=== PATIENT | female | born 1960 | race African-American/Black ===

== ENCOUNTER → 2016-06-17 | Outpatient (CLI) | payer MEDICARE, MEDICAID ==
[~2016-06-17] MED LIST: ACLI400A2 IH; ALBU6.7H INH; ASPI325T2 PO; CARI250T PO; CLOP75TA33 PO; COR6 PO; DULO60CA44 PO; EZET10TA PO; FLUT1DIS3 IH; FURO-152 PO; GABAPENTIN PO; LISI-651 PO; LOSA25TA12 PO; METF10002 PO; METO10TA3 PO; MIRA25TA PO; MONT10TA21 PO; OMEP20CA10 PO; OXYC10TA48 PO; POTA20TA82 PO; PRO-AIR INHALER INH; SIMV40TA5 PO; TRAZ-132 PO; VYT1080; ZOLP5TAB8 PO
== END | disposition home or self-care (01) ==
LOC: RAD 10:09
PROVIDERS: ATTEND Specialist
DX: J98.4 Other disorders of lung (principal)
CPT/HCPCS: 71010

== ENCOUNTER 2016-06-30 22:13 | Inpatient (IN) | payer MEDICARE, MEDICAID ==
[~2016-06-30] VITALS: Ht 154.9 cm; Wt 76.2 kg
[2016-06-30] MEDS ORDERED: ONDANSETRON HCL 4MG/2ML VIAL IV STA (22:31)
[2016-06-30] MEDS ORDERED: ALBUTEROL (0.083%) 2.5MG/3ML NEB HHN STA (22:31)
[2016-06-30] MEDS ORDERED: METHYLPREDNISOLONE SOD SUCC 125 MG/2 ML VIAL IV STA (22:31)
[2016-06-30] MEDS ORDERED: MORPHINE SULFATE 4 MG/ML CPJ (NOT FOR IM USE) IV STA (22:31)
[2016-06-30] MEDS ORDERED: IPRATROPIUM BROMIDE (0.02%) 0.5MG/2.5ML NEB HHN STA (22:31)
[2016-06-30 22:58] LABS: BASOPHILS % 0.5 % (0.0-2.0); EOSINOPHILS % 1.4 % (0.0-5.0); HEMATOCRIT. 48.9 % (36.0-48.0); HEMOGLOBIN. 15.6 g/dL (12.0-16.0); LYMPHOCYTES % 31.6 % (20.0-50.0); MEAN CORPUSCULAR HEMOGLOBIN 27.4 pg (28.0-32.0); MEAN CORPUSCULAR HGB CONC 31.9 g/dL (31.0-37.0); MEAN CORPUSCULAR VOLUME 85.7 fL (81.0-99.0); MEAN PLATELET VOLUME 7.3 fl (7.4-10.4); MONOCYTES % 10.5 % (2.0-8.0); PLATELET 233 x1000/uL (130-400); RED BLOOD CELL COUNT 5.71 mill/uL (4.2-5.4); RED CELL DISTRIBUTION WIDTH 17.2 % (11.6-14.6); WHITE BLOOD COUNT 7.8 x1000/uL (4.5-11.0)
[2016-06-30 23:04] LABS: CHLORIDE 93 mEq/L (98-107); INDEX HEMOLYSI 4 (1-3); INDEX ICTERIC 1 (1-4); INDEX LIPEMIC 1 (1-3)
[2016-06-30 23:07] LABS: INR 1.2; PARTIAL THROMBOPLASTIN TIME 33.4 sec (24.0-34.0)
[2016-06-30 23:14] LABS: ALANINE AMINOTRANSFERASE 16 IU/L (13-61); ALBUMIN 3.1 g/dL (3.4-5.0); ANION GAP 12; CALCIUM 8.8 mg/dL (8.5-10.1); CARBON DIOXIDE 29 mEq/L (21-32); LIPASE 60 IU/L (73-393); UREA NITROGEN BLOOD 8 mg/dL (7-21); eGFR > 60 mL/min (>60)
[2016-06-30 23:51] LABS: CLARITY URINE CLEAR (CLEAR); COLOR URINE YELLOW (YELLOW); GLUCOSE URINE NEGATIVE (NEGATIVE); KETONES URINE NEGATIVE (NEGATIVE); LEUKOCYTE ESTERASE URINE TRACE (NEGATIVE); NITRITE URINE NEGATIVE (NEGATIVE); OCCULT BLOOD URINE NEGATIVE (NEGATIVE); PROTEIN URINE NEGATIVE (NEGATIVE); SPECIFIC GRAVITY URINE 1.009 (1.005-1.030)
[2016-06-30] MEDS ORDERED: MORP15TA67 PO (23:58)
[2016-06-30] MEDS ORDERED: EZET10TA PO (23:58)
[2016-07-01] VITALS (47 sets, daily range): BP systolic 118–198; BP diastolic 71–121
[2016-07-01 00:08] LABS: BACTERIA URINE TRACE; RBC URINE 0-2 /hpf (0-2); SQUAMOUS EPITHELIAL CELL URINE RARE /lpf (RARE/1+); WBC URINE 0-2 /hpf (0-2)
[2016-07-01] MEDS ORDERED: ONDANSETRON HCL 4MG/2ML VIAL IV ONE (01:45)
[2016-07-01] MEDS ORDERED: MORPHINE SULFATE 4 MG/ML CPJ (NOT FOR IM USE) IV ONE (01:45)
[2016-07-01] MEDS ORDERED: SODIUM CHLORIDE 0.9% 10ML VIAL ONE (06:00)
[2016-07-01] MEDS ORDERED: IOHEXOL-300 100 ML BOTTLE ONE (06:00)
[2016-07-01] MEDS ORDERED: ONDANSETRON HCL 4MG/2ML VIAL IV PRN ×2 (06:45→08:45)
[2016-07-01] MEDS ORDERED: BUPIVACAINE HCL 0.5% (5MG/ML) 50ML ONE (06:45)
[2016-07-01] MEDS ORDERED: MORPHINE SULFATE 2 MG/ML CPJ (NOT FOR IM USE) IV PRN ×3 (06:45→08:45)
[2016-07-01] MEDS ORDERED: ROCURONIUM BROMIDE 10MG/ML VIAL 5ML IV ONE (08:42)
[2016-07-01] MEDS ORDERED: PROPOFOL 200MG/20ML VIAL IV ONE (08:42)
[2016-07-01] MEDS ORDERED: CEFAZOLIN SODIUM 1000MG/VIAL ONE (08:42)
[2016-07-01] MEDS ORDERED: DEXAMETHASONE 4MG/ML 1ML VIAL ONE (08:42)
[2016-07-01] MEDS ORDERED: ACETAMINOPHEN 650MG SUPP PR PRN (08:45)
[2016-07-01] MEDS ORDERED: MORPHINE SULFATE 5 MG/ML VIAL IV PRN (08:45)
[2016-07-01] MEDS ORDERED: SKIN ADHESIVE 0.7 GM EA TOP ONE (09:04)
[2016-07-01] MEDS ORDERED: MIDAZOLAM HCL 5 MG/5 ML VIAL ONE (09:19)
[2016-07-01] MEDS ORDERED: HYDROMORPHONE HCL/PF 2MG/ML (OR) ONE (09:19)
[2016-07-01] MEDS ORDERED: HYDROMORPHONE HCL/PF 2MG/ML CPJ IV NR (10:00)
[2016-07-01] MEDS ORDERED: DEXT 5%/0.45% NACL KCL 20MEQ/L 1,000 ML IV SCH (10:00)
[2016-07-01] MEDS ORDERED: MIDAZOLAM HCL 2 MG/2 ML VIAL IV ONE (10:00)
[2016-07-01] MEDS ORDERED: ENALAPRIL 0.625 MG in DEXTROSE 5% WATER 49.5 ML IV PRN (10:45)
[2016-07-01] MEDS: MIDAZOLAM HCL 50 MG in DEXTROSE 5% WATER 40 ML IV PRN ×3 (11:06→22:03)
[2016-07-01] MEDS: FENTANYL CITRATE/PF 500 MCG in SODIUM CHLORIDE 0.9% 40 ML IV PRN ×2 (11:07→20:19)
[2016-07-01] MEDS ORDERED: SODIUM CHLORIDE 0.9% 1,000 ML IV SCH (11:15)
[2016-07-01 11:33] LABS: HEMATOCRIT 48.1 % (36.0-48.0); MEAN CORPUSCULAR HGB CONC 31.3 g/dL (31.0-37.0); MEAN CORPUSCULAR VOLUME 86.2 fL (81.0-99.0); PLATELET 203 x1000/uL (130-400); RED BLOOD CELL COUNT 5.58 mill/uL (4.2-5.4); WHITE BLOOD COUNT 7.4 x1000/uL (4.5-11.0)
[2016-07-01 11:47] LABS: ANION GAP 13; CALCIUM 8.6 mg/dL (8.5-10.1); CARBON DIOXIDE 30 mEq/L (21-32); CHLORIDE 98 mEq/L (98-107); INDEX HEMOLYSI 1 (1-3); INDEX ICTERIC 1 (1-4); INDEX LIPEMIC 1 (1-3); UREA NITROGEN BLOOD 7 mg/dL (7-21); eGFR > 60 mL/min (>60)
[2016-07-01] MEDS: FAMOTIDINE 20MG/2ML VIAL IV SCH ×2 (12:05→20:39)
[2016-07-01 12:31] LABS: BG CARBOXYHEMOGLOBIN 2.3 % (0.5-1.5); BG DEOXYHEMOGLOBIN 0.1 % (0.0-5.0); BG FRACTION INSPIRED OXYGEN 100; BG HCO3 ACT 28.2 mmol/L (22.0-26.0); BG METHEMOGLOBIN 0.1 % (0.0-1.5); BG OXYGEN SATURATION 99.9 % (92.0-98.5); BG OXYHEMOGLOBIN 97.5 % (94.0-97.0); BG PCO2 49.4 mmHg (35.0-45.0); BG PH 7.374 (7.350-7.450); BG PO2 401.1 mmHg (75.0-100.0); BG SAMPLE SITE RIGHT BRACHIAL; BG TIDAL VOLUME(mL) 500 mL; BG TOTAL HEMOGLOBIN 15.3 g/dL (12.0-18.0); BG VENT MODE VENT - A/C; BG VENT RATE 14 set
[2016-07-01] MEDS: DEXT 5%/0.45% NACL 1000ML 1,000 ML IV SCH (13:00)
[2016-07-01] MEDS ORDERED: SODIUM CHLORIDE 10% FOR INH 15ML VIAL NEB INH SCH (13:30)
[2016-07-01] MEDS: ENALAPRIL 1.25MG/ML VIAL 1ML IV PRN ×2 (17:39→20:39)
[2016-07-01] MEDS: BUDESONIDE 0.5MG/2ML NEB HHN SCH (19:57)
[2016-07-01] MEDS: IPRATROPIUM/ALBUTEROL 0.5-3(2.5)MG/3ML NEB HHN SCH (19:57)
[2016-07-02] VITALS (90 sets, daily range): BP systolic 119–180; BP diastolic 73–123
[2016-07-02] MEDS: IPRATROPIUM/ALBUTEROL 0.5-3(2.5)MG/3ML NEB HHN SCH ×4 (02:03→20:17)
[2016-07-02] MEDS: MIDAZOLAM HCL 50 MG in DEXTROSE 5% WATER 40 ML IV PRN ×3 (04:27→16:55)
[2016-07-02 05:25] LABS: BASOPHILS % 0.2 % (0.0-2.0); HEMATOCRIT. 46.4 % (36.0-48.0); HEMOGLOBIN. 14.6 g/dL (12.0-16.0); LYMPHOCYTES % 12.8 % (20.0-50.0); MEAN CORPUSCULAR HEMOGLOBIN 26.6 pg (28.0-32.0); MEAN CORPUSCULAR HGB CONC 31.4 g/dL (31.0-37.0); MEAN CORPUSCULAR VOLUME 84.6 fL (81.0-99.0); MEAN PLATELET VOLUME 7.9 fl (7.4-10.4); MONOCYTES % 10.5 % (2.0-8.0); NEUTROPHILS % 76.5 % (40.0-76.0); PLATELET 196 x1000/uL (130-400); RED BLOOD CELL COUNT 5.48 mill/uL (4.2-5.4); WHITE BLOOD COUNT 14.2 x1000/uL (4.5-11.0)
[2016-07-02 05:39] LABS: ANION GAP 13; CALCIUM 8.4 mg/dL (8.5-10.1); CARBON DIOXIDE 28 mEq/L (21-32); CHLORIDE 99 mEq/L (98-107); INDEX HEMOLYSI 3 (1-3); INDEX ICTERIC 1 (1-4); INDEX LIPEMIC 1 (1-3); MAGNESIUM 1.4 mg/dL (1.8-2.4); UREA NITROGEN BLOOD 7 mg/dL (7-21); eGFR > 60 mL/min (>60)
[2016-07-02] MEDS: DEXT 5%/0.45% NACL 1000ML 1,000 ML IV SCH ×2 (05:45→22:59)
[2016-07-02] MEDS: FENTANYL CITRATE/PF 500 MCG in SODIUM CHLORIDE 0.9% 40 ML IV PRN ×3 (05:46→21:15)
[2016-07-02] MEDS: FAMOTIDINE 20MG/2ML VIAL IV SCH ×2 (08:03→20:35)
[2016-07-02 08:31] LABS: BG BASE EXCESS 5.2 mmol/L (-2.0-2.0); BG CARBOXYHEMOGLOBIN 0.5 % (0.5-1.5); BG DEOXYHEMOGLOBIN 5.8 % (0.0-5.0); BG FRACTION INSPIRED OXYGEN 50; BG METHEMOGLOBIN 0.2 % (0.0-1.5); BG OXYGEN SATURATION 94.2 % (92.0-98.5); BG OXYHEMOGLOBIN 93.5 % (94.0-97.0); BG PCO2 55.4 mmHg (35.0-45.0); BG SAMPLE SITE RIGHT BRACHIAL; BG TIDAL VOLUME(mL) 500 mL; BG TOTAL HEMOGLOBIN 15.4 g/dL (12.0-18.0); BG VENT MODE VENT - A/C; BG VENT RATE 14 set
[2016-07-02] MEDS: BUDESONIDE 0.5MG/2ML NEB HHN SCH ×2 (08:36→20:17)
[2016-07-02] MEDS: ENALAPRIL 1.25MG/ML VIAL 1ML IV PRN (12:28)
[2016-07-02 15:28] LABS: CLARITY URINE CLEAR (CLEAR); COLOR URINE YELLOW (YELLOW); GLUCOSE URINE NEGATIVE (NEGATIVE); KETONES URINE NEGATIVE (NEGATIVE); LEUKOCYTE ESTERASE URINE NEGATIVE (NEGATIVE); NITRITE URINE NEGATIVE (NEGATIVE); OCCULT BLOOD URINE TRACE (NEGATIVE); PROTEIN URINE NEGATIVE (NEGATIVE); SPECIFIC GRAVITY URINE 1.009 (1.005-1.030)
[2016-07-02 15:31] LABS: BACTERIA URINE NONE SEEN; CALCIUM PHOSPHATE CRYSTALS UR NONE SEEN /lpf; SQUAMOUS EPITHELIAL CELL URINE NONE SEEN /lpf (RARE/1+); WAXY CASTS URINE NONE SEEN /lpf; WBC URINE 0-2 /hpf (0-2); YEAST URINE NONE SEEN
[2016-07-02] MEDS: PIPERACILLIN/TAZ 3.375G PREMIX 50 ML IV SCH ×2 (16:18→20:36)
[2016-07-02] MEDS: HYDRALAZINE 20MG/ML VIAL IV SCH (17:58)
[2016-07-02] MEDS ORDERED: VANCOMYCIN 1,250 MG in DEXT 5% WATER 250 ML IV NR (23:00)
[2016-07-03] VITALS (96 sets, daily range): BP systolic 96–174; BP diastolic 61–117
[2016-07-03] MEDS: MIDAZOLAM HCL 50 MG in DEXTROSE 5% WATER 40 ML IV PRN ×3 (00:07→13:42)
[2016-07-03] MEDS: IPRATROPIUM/ALBUTEROL 0.5-3(2.5)MG/3ML NEB HHN SCH ×4 (01:34→19:49)
[2016-07-03] MEDS: PIPERACILLIN/TAZ 3.375G PREMIX 50 ML IV SCH ×4 (02:00→20:18)
[2016-07-03] MEDS ORDERED: MAGNESIUM 2 G PREMIX 50 ML IV NR ×2 (03:00)
[2016-07-03] MEDS: HYDRALAZINE 20MG/ML VIAL IV SCH ×4 (06:00→17:24)
[2016-07-03] MEDS: FENTANYL CITRATE/PF 500 MCG in SODIUM CHLORIDE 0.9% 40 ML IV PRN ×2 (06:09→13:42)
[2016-07-03] MEDS: FAMOTIDINE 20MG/2ML VIAL IV SCH ×2 (08:09→20:18)
[2016-07-03] MEDS: BUDESONIDE 0.5MG/2ML NEB HHN SCH ×3 (08:17→19:49)
[2016-07-03 08:41] LABS: BASOPHILS % 0.4 % (0.0-2.0); HEMATOCRIT. 46.7 % (36.0-48.0); HEMOGLOBIN. 14.8 g/dL (12.0-16.0); LYMPHOCYTES % 9.7 % (20.0-50.0); MEAN CORPUSCULAR HEMOGLOBIN 26.8 pg (28.0-32.0); MEAN CORPUSCULAR HGB CONC 31.7 g/dL (31.0-37.0); MEAN CORPUSCULAR VOLUME 84.3 fL (81.0-99.0); MEAN PLATELET VOLUME 7.1 fl (7.4-10.4); MONOCYTES % 9.5 % (2.0-8.0); NEUTROPHILS % 80.4 % (40.0-76.0); PLATELET 188 x1000/uL (130-400); RED BLOOD CELL COUNT 5.53 mill/uL (4.2-5.4); RED CELL DISTRIBUTION WIDTH 17.4 % (11.6-14.6); WHITE BLOOD COUNT 16.7 x1000/uL (4.5-11.0)
[2016-07-03 09:00] LABS: CHLORIDE 95 mEq/L (98-107); INDEX HEMOLYSI 1 (1-3); INDEX ICTERIC 1 (1-4); INDEX LIPEMIC 1 (1-3)
[2016-07-03 09:09] LABS: ALANINE AMINOTRANSFERASE 9 IU/L (13-61); ALBUMIN 2.6 g/dL (3.4-5.0); ANION GAP 11; CALCIUM 8.3 mg/dL (8.5-10.1); CARBON DIOXIDE 31 mEq/L (21-32); MAGNESIUM 1.9 mg/dL (1.8-2.4); UREA NITROGEN BLOOD 5 mg/dL (7-21); eGFR > 60 mL/min (>60)
[2016-07-03] MEDS: VANCOMYCIN 1 G PREMIX 200 ML IV SCH ×2 (10:32→22:00)
[2016-07-03] MEDS ORDERED: POTASSIUM CHLORIDE 20MEQ TABLET SR PO NR (11:45)
[2016-07-03] MEDS ORDERED: POTASSIUM CHLORIDE 20MEQ/PACKET NG SCH (12:00)
[2016-07-03 12:40] LABS: BG CARBOXYHEMOGLOBIN 1.1 % (0.5-1.5); BG DEOXYHEMOGLOBIN 6.7 % (0.0-5.0); BG FRACTION INSPIRED OXYGEN 60; BG HCO3 ACT 30.7 mmol/L (22.0-26.0); BG METHEMOGLOBIN 0.2 % (0.0-1.5); BG OXYGEN SATURATION 93.2 % (92.0-98.5); BG PCO2 44.3 mmHg (35.0-45.0); BG PH 7.459 (7.350-7.450); BG PO2 66.6 mmHg (75.0-100.0); BG SAMPLE SITE RIGHT BRACHIAL; BG TIDAL VOLUME(mL) 500 mL; BG TOTAL HEMOGLOBIN 15.1 g/dL (12.0-18.0); BG VENT MODE VENT - A/C; BG VENT RATE 14 set
[2016-07-03] MEDS ORDERED: MIDAZOLAM HCL IV PRN (16:31)
[2016-07-03] MEDS ORDERED: WATER IV PRN (16:31)
[2016-07-03] MEDS ORDERED: FENTANYL CITRATE IV PRN (16:31)
[2016-07-03] MEDS ORDERED: SODIUM CHLORIDE 0.9% IV PRN (16:31)
[2016-07-03] MEDS ORDERED: DEXTROSE 5% IV PRN (16:31)
[2016-07-03] MEDS: DEXT 5%/0.45% NACL 1000ML 1,000 ML IV SCH (20:18)
[2016-07-03] MEDS: FENTANYL CITRATE/PF 1,000 MCG in SODIUM CHLORIDE 0.9% 80 ML IV PRN (20:36)
[2016-07-03] MEDS: MIDAZOLAM HCL 100 MG in DEXT 5% WATER 80 ML IV PRN (20:43)
[2016-07-03] MEDS ORDERED: DILTIAZEM HCL 5MG/ML 5ML VIAL IV NR (20:45)
[2016-07-03] MEDS ORDERED: FUROSEMIDE 40MG/4ML VIAL IVP NR (21:15)
[2016-07-04] VITALS (88 sets, daily range): BP systolic 85–125; BP diastolic 56–84
[2016-07-04] MEDS: IPRATROPIUM/ALBUTEROL 0.5-3(2.5)MG/3ML NEB HHN SCH ×4 (02:00→20:31)
[2016-07-04] MEDS ORDERED: ACETAMINOPHEN 650MG/20.3ML UDC PO PRN (02:38)
[2016-07-04] MEDS: PIPERACILLIN/TAZ 3.375G PREMIX 50 ML IV SCH ×4 (02:41→20:06)
[2016-07-04 05:17] LABS: BASOPHILS % 0.2 % (0.0-2.0); EOSINOPHILS % 0.1 % (0.0-5.0); HEMATOCRIT. 44.4 % (36.0-48.0); LYMPHOCYTES % 9.5 % (20.0-50.0); MEAN CORPUSCULAR HEMOGLOBIN 26.5 pg (28.0-32.0); MEAN CORPUSCULAR HGB CONC 31.5 g/dL (31.0-37.0); MEAN CORPUSCULAR VOLUME 84.3 fL (81.0-99.0); MEAN PLATELET VOLUME 7.8 fl (7.4-10.4); NEUTROPHILS % 81.2 % (40.0-76.0); PLATELET 171 x1000/uL (130-400); RED BLOOD CELL COUNT 5.27 mill/uL (4.2-5.4); RED CELL DISTRIBUTION WIDTH 16.7 % (11.6-14.6)
[2016-07-04 05:43] LABS: ANION GAP 11; CARBON DIOXIDE 31 mEq/L (21-32); CHLORIDE 97 mEq/L (98-107); CREATINE KINASE 75 IU/L (26-192); INDEX HEMOLYSI 1 (1-3); INDEX ICTERIC 1 (1-4); INDEX LIPEMIC 1 (1-3); LIPASE 67 IU/L (73-393); UREA NITROGEN BLOOD 8 mg/dL (7-21); eGFR > 60 mL/min (>60)
[2016-07-04] MEDS: HYDRALAZINE 20MG/ML VIAL IV SCH ×3 (05:55→12:00)
[2016-07-04 06:00] LABS: CALCIUM 8.6 mg/dL (8.5-10.1)
[2016-07-04 07:12] LABS: BG BASE EXCESS 1.5 mmol/L (-2.0-2.0); BG CARBOXYHEMOGLOBIN 0.5 % (0.5-1.5); BG DEOXYHEMOGLOBIN 5.1 % (0.0-5.0); BG FRACTION INSPIRED OXYGEN 80; BG HCO3 ACT 25.6 mmol/L (22.0-26.0); BG OXYGEN SATURATION 94.8 % (92.0-98.5); BG OXYHEMOGLOBIN 93.4 % (94.0-97.0); BG PCO2 38.9 mmHg (35.0-45.0); BG PH 7.436 (7.350-7.450); BG PO2 76.8 mmHg (75.0-100.0); BG SAMPLE SITE RIGHT BRACHIAL; BG TIDAL VOLUME(mL) 500 mL; BG TOTAL HEMOGLOBIN 14.8 g/dL (12.0-18.0); BG VENT MODE VENT - A/C; BG VENT RATE 14 set
[2016-07-04] MEDS ORDERED: KCL 10MEQ/50ML PREMIX 50 ML IV NR (07:15)
[2016-07-04] MEDS: FENTANYL CITRATE/PF 1,000 MCG in SODIUM CHLORIDE 0.9% 80 ML IV PRN ×2 (07:26→17:19)
[2016-07-04] MEDS: MIDAZOLAM HCL 100 MG in DEXT 5% WATER 80 ML IV PRN ×2 (07:27→19:09)
[2016-07-04] MEDS: FAMOTIDINE 20MG/2ML VIAL IV SCH ×2 (09:36→20:06)
[2016-07-04] MEDS ORDERED: MEROPENEM 1000MG in NORMAL SALINE 100ML IV SCH (13:00)
[2016-07-04] MEDS ORDERED: SODIUM CHLORIDE 0.9% 250 ML IV NR (15:15)
[2016-07-04] MEDS: DEXT 5%/0.45% NACL 1000ML 1,000 ML IV SCH (16:20)
[2016-07-04] MEDS: BUDESONIDE 0.5MG/2ML NEB HHN SCH (20:31)
[2016-07-04] MEDS ORDERED: BUDESONIDE 0.5MG/2ML NEB ONE (20:37)
[2016-07-05] VITALS (97 sets, daily range): BP systolic 82–166; BP diastolic 45–101
[2016-07-05] MEDS: PIPERACILLIN/TAZ 3.375G PREMIX 50 ML IV SCH ×4 (02:04→21:50)
[2016-07-05] MEDS: IPRATROPIUM/ALBUTEROL 0.5-3(2.5)MG/3ML NEB HHN SCH ×4 (02:07→19:59)
[2016-07-05] MEDS: FENTANYL CITRATE/PF 1,000 MCG in SODIUM CHLORIDE 0.9% 80 ML IV PRN ×3 (02:49→14:42)
[2016-07-05 05:24] LABS: BASOPHILS % 0.2 % (0.0-2.0); DIFFERENTIAL COMMENT 0; EOSINOPHILS % 1.6 % (0.0-5.0); HEMATOCRIT. 41.7 % (36.0-48.0); HEMOGLOBIN. 12.8 g/dL (12.0-16.0); LYMPHOCYTES % 11.7 % (20.0-50.0); MEAN CORPUSCULAR HEMOGLOBIN 26.2 pg (28.0-32.0); MEAN CORPUSCULAR HGB CONC 30.7 g/dL (31.0-37.0); MEAN CORPUSCULAR VOLUME 85.4 fL (81.0-99.0); MEAN PLATELET VOLUME 8.2 fl (7.4-10.4); MONOCYTES % 8.4 % (2.0-8.0); NEUTROPHILS % 78.1 % (40.0-76.0); PLATELET 165 x1000/uL (130-400); RED BLOOD CELL COUNT 4.88 mill/uL (4.2-5.4); RED CELL DISTRIBUTION WIDTH 16.9 % (11.6-14.6); WHITE BLOOD COUNT 14.2 x1000/uL (4.5-11.0)
[2016-07-05 05:35] LABS: CHLORIDE 102 mEq/L (98-107); INDEX HEMOLYSI 1 (1-3); INDEX ICTERIC 1 (1-4); INDEX LIPEMIC 1 (1-3)
[2016-07-05 05:43] LABS: ANION GAP 11; CARBON DIOXIDE 28 mEq/L (21-32); MAGNESIUM 1.8 mg/dL (1.8-2.4); UREA NITROGEN BLOOD 11 mg/dL (7-21); eGFR > 60 mL/min (>60)
[2016-07-05] MEDS: FAMOTIDINE 20MG/2ML VIAL IV SCH ×2 (08:28→21:50)
[2016-07-05] MEDS: DEXT 5%/0.45% NACL 1000ML 1,000 ML IV SCH (08:38)
[2016-07-05] MEDS ORDERED: MAGNESIUM 1 G PREMIX 100 ML IV SCH (10:00)
[2016-07-05] MEDS ORDERED: POTASSIUM CHLORIDE INJ 40 MEQ in DEXT 5% WATER 250 ML IV SCH (11:00)
[2016-07-05 11:28] LABS: BG BASE EXCESS 3.2 mmol/L (-2.0-2.0); BG CARBOXYHEMOGLOBIN 0.9 % (0.5-1.5); BG DEOXYHEMOGLOBIN 4.1 % (0.0-5.0); BG FRACTION INSPIRED OXYGEN 50; BG HCO3 ACT 28.8 mmol/L (22.0-26.0); BG METHEMOGLOBIN 0.2 % (0.0-1.5); BG OXYGEN SATURATION 95.9 % (92.0-98.5); BG OXYHEMOGLOBIN 94.8 % (94.0-97.0); BG PCO2 47.5 mmHg (35.0-45.0); BG PO2 83.4 mmHg (75.0-100.0); BG SAMPLE SITE RIGHT BRACHIAL; BG TIDAL VOLUME(mL) 500 mL; BG TOTAL HEMOGLOBIN 13.8 g/dL (12.0-18.0); BG VENT MODE VENT - A/C; BG VENT RATE 14 set
[2016-07-05] MEDS ORDERED: BISACODYL 5MG TABLET PO NR (12:30)
[2016-07-05] MEDS ORDERED: MAGNESIUM CITRATE 300ML SOLUTION PO NR (12:30)
[2016-07-05] MEDS ORDERED: LACTULOSE 20G/30ML UDC PO NR (12:30)
[2016-07-05] MEDS ORDERED: LACTULOSE 20G/30ML UDC NG NR (13:45)
[2016-07-05] MEDS ORDERED: MAGNESIUM CITRATE 300ML SOLUTION NG NR (13:45)
[2016-07-05] MEDS: MIDAZOLAM HCL 100 MG in DEXT 5% WATER 80 ML IV PRN (13:51)
[2016-07-05] MEDS ORDERED: LACTULOSE 20G/30ML UDC PO SCH (21:00)
[2016-07-05] MEDS: LACTULOSE 20G/30ML UDC NG SCH (21:50)
[2016-07-06] VITALS (62 sets, daily range): BP systolic 118–180; BP diastolic 66–101
[2016-07-06] MEDS: FENTANYL CITRATE/PF 1,000 MCG in SODIUM CHLORIDE 0.9% 80 ML IV PRN (00:54)
[2016-07-06] MEDS: IPRATROPIUM/ALBUTEROL 0.5-3(2.5)MG/3ML NEB HHN SCH ×4 (01:52→20:06)
[2016-07-06] MEDS: PIPERACILLIN/TAZ 3.375G PREMIX 50 ML IV SCH ×4 (02:53→20:38)
[2016-07-06 04:29] LABS: BASOPHILS % 0.3 % (0.0-2.0); EOSINOPHILS % 4.4 % (0.0-5.0); HEMATOCRIT. 42.4 % (36.0-48.0); HEMOGLOBIN. 13.3 g/dL (12.0-16.0); MEAN CORPUSCULAR HEMOGLOBIN 27.1 pg (28.0-32.0); MEAN CORPUSCULAR HGB CONC 31.4 g/dL (31.0-37.0); MEAN CORPUSCULAR VOLUME 86.2 fL (81.0-99.0); MONOCYTES % 11.5 % (2.0-8.0); NEUTROPHILS % 64.8 % (40.0-76.0); PLATELET 179 x1000/uL (130-400); RED BLOOD CELL COUNT 4.92 mill/uL (4.2-5.4); WHITE BLOOD COUNT 11.1 x1000/uL (4.5-11.0)
[2016-07-06] MEDS: MIDAZOLAM HCL 100 MG in DEXT 5% WATER 80 ML IV PRN (04:35)
[2016-07-06 05:06] LABS: ANION GAP 9; CALCIUM 8.9 mg/dL (8.5-10.1); CARBON DIOXIDE 31 mEq/L (21-32); CHLORIDE 107 mEq/L (98-107); INDEX HEMOLYSI 1 (1-3); INDEX ICTERIC 1 (1-4); INDEX LIPEMIC 1 (1-3); MAGNESIUM 2.1 mg/dL (1.8-2.4); UREA NITROGEN BLOOD 8 mg/dL (7-21); eGFR > 60 mL/min (>60)
[2016-07-06] MEDS: FAMOTIDINE 20MG/2ML VIAL IV SCH ×2 (09:07→20:38)
[2016-07-06 11:33] LABS: BG BASE EXCESS -3.5 mmol/L (-2.0-2.0); BG DEOXYHEMOGLOBIN 7.8 % (0.0-5.0); BG FRACTION INSPIRED OXYGEN 40; BG HCO3 ACT 23.2 mmol/L (22.0-26.0); BG METHEMOGLOBIN 0.2 % (0.0-1.5); BG OXYGEN SATURATION 92.1 % (92.0-98.5); BG PCO2 48.1 mmHg (35.0-45.0); BG PH 7.302 (7.350-7.450); BG PO2 71.2 mmHg (75.0-100.0); BG PRESSURE SUPPORT 8; BG SAMPLE SITE RIGHT RADIAL; BG TIDAL VOLUME(mL) 500 mL; BG TOTAL HEMOGLOBIN 14.6 g/dL (12.0-18.0); BG VENT MODE VENT - SIMV; BG VENT RATE 10 set
[2016-07-06] MEDS: MORPHINE SULFATE 2 MG/ML CPJ (NOT FOR IM USE) IV PRN ×2 (15:10→19:56)
[2016-07-06] MEDS: ACETYLCYSTEINE 100MG/ML 10% VIAL 4ML INH SCH (20:06)
[2016-07-06] MEDS: LACTULOSE 20G/30ML UDC NG SCH (20:38)
[2016-07-07] VITALS (48 sets, daily range): BP systolic 100–199; BP diastolic 49–153
[2016-07-07] MEDS: MORPHINE SULFATE 2 MG/ML CPJ (NOT FOR IM USE) IV PRN ×6 (00:12→22:06)
[2016-07-07] MEDS: ACETYLCYSTEINE 100MG/ML 10% VIAL 4ML INH SCH ×4 (01:57→20:47)
[2016-07-07] MEDS: IPRATROPIUM/ALBUTEROL 0.5-3(2.5)MG/3ML NEB HHN SCH ×4 (01:57→15:58)
[2016-07-07] MEDS: PIPERACILLIN/TAZ 3.375G PREMIX 50 ML IV SCH ×4 (03:22→21:13)
[2016-07-07 05:27] LABS: BASOPHILS % 0.7 % (0.0-2.0); EOSINOPHILS % 2.9 % (0.0-5.0); HEMATOCRIT. 40.8 % (36.0-48.0); HEMOGLOBIN. 12.7 g/dL (12.0-16.0); LYMPHOCYTES % 16.6 % (20.0-50.0); MEAN CORPUSCULAR HEMOGLOBIN 26.6 pg (28.0-32.0); MEAN CORPUSCULAR VOLUME 85.8 fL (81.0-99.0); MEAN PLATELET VOLUME 8.4 fl (7.4-10.4); MONOCYTES % 12.2 % (2.0-8.0); NEUTROPHILS % 67.6 % (40.0-76.0); PLATELET 220 x1000/uL (130-400); RED BLOOD CELL COUNT 4.76 mill/uL (4.2-5.4); RED CELL DISTRIBUTION WIDTH 17.3 % (11.6-14.6); WHITE BLOOD COUNT 8.4 x1000/uL (4.5-11.0)
[2016-07-07 05:38] LABS: ANION GAP 15; CARBON DIOXIDE 28 mEq/L (21-32); CHLORIDE 109 mEq/L (98-107); INDEX HEMOLYSI 1 (1-3); INDEX ICTERIC 1 (1-4); INDEX LIPEMIC 1 (1-3); UREA NITROGEN BLOOD 11 mg/dL (7-21); eGFR > 60 mL/min (>60)
[2016-07-07] MEDS: FAMOTIDINE 20MG/2ML VIAL IV SCH ×2 (08:13→21:13)
[2016-07-07] MEDS: HYDRALAZINE 20MG/ML VIAL IV PRN (10:04)
[2016-07-07 11:42] LABS: BG BASE EXCESS 4.1 mmol/L (-2.0-2.0); BG CARBOXYHEMOGLOBIN 0.9 % (0.5-1.5); BG DEOXYHEMOGLOBIN 8.1 % (0.0-5.0); BG FRACTION INSPIRED OXYGEN 40; BG HCO3 ACT 27.4 mmol/L (22.0-26.0); BG OXYGEN SATURATION 91.8 % (92.0-98.5); BG PH 7.488 (7.350-7.450); BG PRESSURE SUPPORT 8; BG SAMPLE SITE RIGHT RADIAL; BG TOTAL HEMOGLOBIN 13.7 g/dL (12.0-18.0); BG VENT MODE VENT - CPAP
[2016-07-07] MEDS ORDERED: PNEUMOCOCCAL 23-VAL P-SAC VAC 0.5 ML IM ONE (15:15)
[2016-07-07] MEDS: IPRATROPIUM/ALBUTEROL 0.5-3(2.5)MG/3ML NEB HHN PRN (20:48)
[2016-07-07] MEDS: LACTULOSE 20G/30ML UDC NG SCH (21:00)
[2016-07-08] VITALS (18 sets, daily range): BP systolic 118–153; BP diastolic 66–128
[2016-07-08] MEDS: MORPHINE SULFATE 2 MG/ML CPJ (NOT FOR IM USE) IV PRN ×4 (02:00→17:06)
[2016-07-08] MEDS: IPRATROPIUM/ALBUTEROL 0.5-3(2.5)MG/3ML NEB HHN SCH ×4 (02:34→21:24)
[2016-07-08] MEDS: PIPERACILLIN/TAZ 3.375G PREMIX 50 ML IV SCH ×4 (03:08→20:45)
[2016-07-08 05:42] LABS: BASOPHILS % 0.5 % (0.0-2.0); EOSINOPHILS % 3.1 % (0.0-5.0); HEMATOCRIT. 40.2 % (36.0-48.0); HEMOGLOBIN. 12.5 g/dL (12.0-16.0); LYMPHOCYTES % 19.5 % (20.0-50.0); MEAN CORPUSCULAR HEMOGLOBIN 26.4 pg (28.0-32.0); MEAN CORPUSCULAR HGB CONC 31.1 g/dL (31.0-37.0); MEAN CORPUSCULAR VOLUME 84.8 fL (81.0-99.0); MEAN PLATELET VOLUME 8.8 fl (7.4-10.4); MONOCYTES % 11.5 % (2.0-8.0); NEUTROPHILS % 65.4 % (40.0-76.0); PLATELET 252 x1000/uL (130-400); RED BLOOD CELL COUNT 4.74 mill/uL (4.2-5.4); RED CELL DISTRIBUTION WIDTH 17.3 % (11.6-14.6)
[2016-07-08 06:05] LABS: ANION GAP 12; CALCIUM 8.8 mg/dL (8.5-10.1); CARBON DIOXIDE 30 mEq/L (21-32); CHLORIDE 106 mEq/L (98-107); INDEX HEMOLYSI 2 (1-3); INDEX ICTERIC 1 (1-4); INDEX LIPEMIC 1 (1-3); UREA NITROGEN BLOOD 10 mg/dL (7-21); eGFR > 60 mL/min (>60)
[2016-07-08] MEDS: FAMOTIDINE 20MG/2ML VIAL IV SCH ×2 (08:20→20:44)
[2016-07-08] MEDS: LACTULOSE 20G/30ML UDC NG SCH (21:00)
[2016-07-09] VITALS (11 sets, daily range): BP systolic 119–160; BP diastolic 67–108
[2016-07-09] MEDS: IPRATROPIUM/ALBUTEROL 0.5-3(2.5)MG/3ML NEB HHN SCH ×3 (00:31→21:32)
[2016-07-09] MEDS: MORPHINE SULFATE 2 MG/ML CPJ (NOT FOR IM USE) IV PRN ×4 (01:04→18:30)
[2016-07-09] MEDS: PIPERACILLIN/TAZ 3.375G PREMIX 50 ML IV SCH ×4 (02:37→20:11)
[2016-07-09] MEDS: HYDRALAZINE 20MG/ML VIAL IV PRN ×2 (04:51→15:24)
[2016-07-09 06:21] LABS: BASOPHILS % 0.7 % (0.0-2.0); DIFFERENTIAL COMMENT 0; EOSINOPHILS % 3.4 % (0.0-5.0); HEMATOCRIT. 43.2 % (36.0-48.0); HEMOGLOBIN. 13.3 g/dL (12.0-16.0); LYMPHOCYTES % 31.8 % (20.0-50.0); MEAN CORPUSCULAR HEMOGLOBIN 26.1 pg (28.0-32.0); MEAN CORPUSCULAR HGB CONC 30.8 g/dL (31.0-37.0); MEAN CORPUSCULAR VOLUME 84.8 fL (81.0-99.0); MEAN PLATELET VOLUME 8.8 fl (7.4-10.4); MONOCYTES % 11.3 % (2.0-8.0); NEUTROPHILS % 52.8 % (40.0-76.0); PLATELET 277 x1000/uL (130-400); RED CELL DISTRIBUTION WIDTH 17.3 % (11.6-14.6); WHITE BLOOD COUNT 11.1 x1000/uL (4.5-11.0)
[2016-07-09 07:00] LABS: CALCIUM 8.6 mg/dL (8.5-10.1); CARBON DIOXIDE 29 mEq/L (21-32); CHLORIDE 100 mEq/L (98-107); INDEX HEMOLYSI 1 (1-3); INDEX ICTERIC 1 (1-4); INDEX LIPEMIC 1 (1-3); UREA NITROGEN BLOOD 6 mg/dL (7-21); eGFR > 60 mL/min (>60)
[2016-07-09 07:05] LABS: ANION GAP 12
[2016-07-09] MEDS: FAMOTIDINE 20MG/2ML VIAL IV SCH ×2 (08:11→20:11)
[2016-07-09] MEDS ORDERED: POTASSIUM CHLORIDE 20MEQ TABLET SR PO NR ×2 (09:01→18:00)
[2016-07-09] MEDS ORDERED: POTASSIUM CHLORIDE INJ 40 MEQ in DEXT 5% WATER 250 ML IV NR (10:00)
[2016-07-09] MEDS: LACTULOSE 20G/30ML UDC NG SCH (20:12)
[2016-07-10] VITALS (12 sets, daily range): BP systolic 119–147; BP diastolic 69–90
[2016-07-10] MEDS: IPRATROPIUM/ALBUTEROL 0.5-3(2.5)MG/3ML NEB HHN SCH ×3 (01:52→20:36)
[2016-07-10] MEDS: PIPERACILLIN/TAZ 3.375G PREMIX 50 ML IV SCH ×4 (02:03→20:43)
[2016-07-10] MEDS: MORPHINE SULFATE 2 MG/ML CPJ (NOT FOR IM USE) IV PRN ×4 (03:54→20:28)
[2016-07-10 06:33] LABS: ANION GAP 12; CALCIUM 8.4 mg/dL (8.5-10.1); CARBON DIOXIDE 27 mEq/L (21-32); CHLORIDE 103 mEq/L (98-107); INDEX HEMOLYSI 1 (1-3); INDEX ICTERIC 1 (1-4); INDEX LIPEMIC 1 (1-3); UREA NITROGEN BLOOD 5 mg/dL (7-21); eGFR > 60 mL/min (>60)
[2016-07-10 06:42] LABS: HEMATOCRIT 42.8 % (36.0-48.0); HEMOGLOBIN 13.3 g/dL (12.0-16.0); MEAN CORPUSCULAR HEMOGLOBIN 26.6 pg (28.0-32.0); MEAN CORPUSCULAR HGB CONC 31.1 g/dL (31.0-37.0); MEAN CORPUSCULAR VOLUME 85.3 fL (81.0-99.0); PLATELET 290 x1000/uL (130-400); RED BLOOD CELL COUNT 5.02 mill/uL (4.2-5.4); RED CELL DISTRIBUTION WIDTH 17.1 % (11.6-14.6); WHITE BLOOD COUNT 9.5 x1000/uL (4.5-11.0)
[2016-07-10] MEDS: FAMOTIDINE 20MG/2ML VIAL IV SCH ×2 (09:38→20:28)
[2016-07-10] MEDS: IPRATROPIUM/ALBUTEROL 0.5-3(2.5)MG/3ML NEB HHN PRN (16:32)
[2016-07-10] MEDS: LACTULOSE 20G/30ML UDC NG SCH (20:28)
[2016-07-11] VITALS (7 sets, daily range): BP systolic 120–146; BP diastolic 71–92
[2016-07-11] MEDS: MORPHINE SULFATE 2 MG/ML CPJ (NOT FOR IM USE) IV PRN ×3 (00:13→08:35)
[2016-07-11] MEDS: IPRATROPIUM/ALBUTEROL 0.5-3(2.5)MG/3ML NEB HHN SCH ×2 (01:41→09:13)
[2016-07-11] MEDS: PIPERACILLIN/TAZ 3.375G PREMIX 50 ML IV SCH ×2 (02:39→08:34)
[2016-07-11 07:01] LABS: BASOPHILS % 0.4 % (0.0-2.0); EOSINOPHILS % 3.6 % (0.0-5.0); HEMATOCRIT. 39.2 % (36.0-48.0); HEMOGLOBIN. 12.2 g/dL (12.0-16.0); LYMPHOCYTES % 22.8 % (20.0-50.0); MEAN CORPUSCULAR HEMOGLOBIN 26.4 pg (28.0-32.0); MEAN CORPUSCULAR HGB CONC 31.2 g/dL (31.0-37.0); MEAN CORPUSCULAR VOLUME 84.8 fL (81.0-99.0); MEAN PLATELET VOLUME 8.7 fl (7.4-10.4); MONOCYTES % 9.7 % (2.0-8.0); NEUTROPHILS % 63.5 % (40.0-76.0); PLATELET 285 x1000/uL (130-400); RED BLOOD CELL COUNT 4.62 mill/uL (4.2-5.4); RED CELL DISTRIBUTION WIDTH 17.1 % (11.6-14.6); WHITE BLOOD COUNT 8.9 x1000/uL (4.5-11.0)
[2016-07-11 07:48] LABS: ANION GAP 10; CALCIUM 8.5 mg/dL (8.5-10.1); CARBON DIOXIDE 28 mEq/L (21-32); CHLORIDE 104 mEq/L (98-107); INDEX HEMOLYSI 1 (1-3); INDEX ICTERIC 1 (1-4); INDEX LIPEMIC 1 (1-3); eGFR > 60 mL/min (>60)
[2016-07-11 08:14] LABS: UREA NITROGEN BLOOD 3 mg/dL (7-21)
[2016-07-11] MEDS: FAMOTIDINE 20MG/2ML VIAL IV SCH (08:35)
[2016-07-11] MEDS ORDERED: POTASSIUM CHLORIDE 20MEQ TABLET SR PO SCH (09:30)
== END 2016-07-11 11:30 | disposition home or self-care (01) | DRG 853 ==
LOC: ER 22:14 → 8WST 07-01 02:00 → MICUSO 07-01 09:58 → 5EST 07-08 12:50
PROVIDERS: ADMIT Specialist; ATTEND Specialist
PROC: 5A1955Z Respiratory Ventilation, Greater than 96 Consecutive Hours (ICD-10-PCS; 2016-07-01)
PROC: 0BH17EZ Insertion of Endotracheal Airway into Trachea, Via Natural or Artificial Opening (ICD-10-PCS; 2016-07-01)
PROC: 0WUF0JZ Supplement Abdominal Wall with Synthetic Substitute, Open Approach (ICD-10-PCS; principal; 2016-07-01 06:32)
PROC: 0DN80ZZ Release Small Intestine, Open Approach (ICD-10-PCS; 2016-07-01 06:32)
DX: A41.52 Sepsis due to Pseudomonas (principal); J96.00 Acute respiratory failure, unspecified whether with hypoxia or hypercapnia; J15.5 Pneumonia due to Escherichia coli; K42.0 Umbilical hernia with obstruction, without gangrene; J44.1 Chronic obstructive pulmonary disease with (acute) exacerbation; E44.1 Mild protein-calorie malnutrition; E87.1 Hypo-osmolality and hyponatremia; E87.2 Acidosis; I42.9 Cardiomyopathy, unspecified; J44.0 Chronic obstructive pulmonary disease with (acute) lower respiratory infection; J98.11 Atelectasis; M87.9 Osteonecrosis, unspecified; E11.9 Type 2 diabetes mellitus without complications; I11.0 Hypertensive heart disease with heart failure; D69.6 Thrombocytopenia, unspecified; E78.00 Pure hypercholesterolemia, unspecified; E78.5 Hyperlipidemia, unspecified; E83.42 Hypomagnesemia; E87.6 Hypokalemia; F17.200 Nicotine dependence, unspecified, uncomplicated; G89.4 Chronic pain syndrome; I25.10 Atherosclerotic heart disease of native coronary artery without angina pectoris; I25.2 Old myocardial infarction; I50.9 Heart failure, unspecified; Z96.649 Presence of unspecified artificial hip joint; R41.3 Other amnesia; R26.9 Unspecified abnormalities of gait and mobility; R56.9 Unspecified convulsions; Z82.49 Family history of ischemic heart disease and other diseases of the circulatory system; Z86.73 Personal history of transient ischemic attack (TIA), and cerebral infarction without residual deficits; Z90.49 Acquired absence of other specified parts of digestive tract; Z95.1 Presence of aortocoronary bypass graft; Z95.5 Presence of coronary angioplasty implant and graft; Z99.81 Dependence on supplemental oxygen; Z91.012 Allergy to eggs; Z79.899 Other long term (current) drug therapy; Z68.31 Body mass index [BMI] 31.0-31.9, adult
CPT/HCPCS: 36415; 36600; 71010; 74000; 74177; 80048; 80053; 80202; 81001; 82375; 82533; 82550; 82805; 83690; 83735; 84100; 85025; 85027; 85610; 85730; 86850; 86900; 87040; 87070; 87077; 87086; 87186; 92523; 92610; 93005; 93306; 93970; 94002; 94003; 94640; 94664; 96374; 96375; 96376; 97116; 97163; 97167; 97535; 99285; 99406; A4216; A6261; C1781; J0360; J0690; J1100; J1170; J1940; J2185; J2250; J2270; J2405; J2543; J2704; J2930; J3010; J3370; J3475; J3480; J3490; J7030; J7040; J7050; J7060; J7131; J7608; J7611; J7620; J7626; Q9967

== ENCOUNTER 2016-08-26 08:44 | Inpatient (IN) | payer MEDICARE, MEDICAID ==
[~2016-08-26] VITALS: Ht 154.9 cm; Wt 70.3 kg
[~2016-08-26 08:44] MED LIST changes: +ASPI-986 PO; -ASPI325T2 PO; -EZET10TA PO; +MORP15TA67 PO; +ZET10 PO
[2016-08-26] MEDS ORDERED: IPRATROPIUM BROMIDE (0.02%) 0.5MG/2.5ML NEB HHN STA ×2 (10:06→12:16)
[2016-08-26] MEDS ORDERED: ALBUTEROL (0.083%) 2.5MG/3ML NEB HHN STA ×2 (10:06→12:16)
[2016-08-26 10:34] LABS: BASOPHILS % 0.8 % (0.0-2.0); EOSINOPHILS % 0.7 % (0.0-5.0); HEMATOCRIT. 52.4 % (36.0-48.0); HEMOGLOBIN. 16.9 g/dL (12.0-16.0); LYMPHOCYTES % 45.7 % (20.0-50.0); MEAN CORPUSCULAR HEMOGLOBIN 27.6 pg (28.0-32.0); MEAN CORPUSCULAR VOLUME 85.7 fL (81.0-99.0); MEAN PLATELET VOLUME 7.4 fl (7.4-10.4); NEUTROPHILS % 46.8 % (40.0-76.0); PLATELET 256 x1000/uL (130-400); RED BLOOD CELL COUNT 6.12 mill/uL (4.2-5.4); RED CELL DISTRIBUTION WIDTH 19.8 % (11.6-14.6)
[2016-08-26 10:41] LABS: INR 1.1; PROTHROMBIN TIME 11.3 sec
[2016-08-26 10:52] LABS: CARBON DIOXIDE 32 mEq/L (21-32); CHLORIDE 101 mEq/L (98-107); TROPONIN I < 0.02 ng/mL (0.00-0.04)
[2016-08-26] MEDS ORDERED: MORPHINE SULFATE 4 MG/ML CPJ (NOT FOR IM USE) IV ONE (11:00)
[2016-08-26] MEDS ORDERED: ONDANSETRON HCL 4MG/2ML VIAL IV ONE (11:00)
[2016-08-26] MEDS ORDERED: SODIUM CHLORIDE 0.9% 500 ML IV ONE (11:45)
[2016-08-26] MEDS ORDERED: METHYLPREDNISOLONE SOD SUCC 125 MG/2 ML VIAL IV ONE (12:30)
[2016-08-26] MEDS ORDERED: MORPHINE SULFATE 2 MG/ML CPJ (NOT FOR IM USE) IV ONE (12:30)
[2016-08-26] MEDS ORDERED: SODIUM CHLORIDE 0.9% 1,000 ML IV ONE (15:00)
[2016-08-26] MEDS ORDERED: IPRATROPIUM/ALBUTEROL 0.5-3(2.5)MG/3ML NEB INH PRN (16:30)
[2016-08-26] MEDS ORDERED: GUAIFENESIN 200MG/10ML SUGAR FREE UDC PO PRN (16:30)
[2016-08-26] MEDS ORDERED: NA PHOS,M-B/NA PHOS,DI-BA ENEMA 118ML PR PRN (16:30)
[2016-08-26] MEDS ORDERED: MAGNESIUM/ALUMINUM HYDROXIDE/SIMETHICONE 30ML UDC PO PRN (16:30)
[2016-08-26] MEDS ORDERED: ACETAMINOPHEN 325MG TABLET PO PRN (16:30)
[2016-08-26] MEDS ORDERED: DOCUSATE SODIUM 100MG CAPSULE PO PRN (16:30)
[2016-08-26] MEDS ORDERED: ONDANSETRON HCL 4MG/2ML VIAL IV PRN (16:30)
[2016-08-26] MEDS ORDERED: HYDROCODONE/ACETAMINOPHEN 5/325MG TABLET PO PRN (16:30)
[2016-08-26] MEDS ORDERED: CLONIDINE 0.1MG TABLET PO PRN (16:30)
[2016-08-26 16:41] LABS: CLARITY URINE CLEAR (CLEAR); COLOR URINE YELLOW (YELLOW); KETONES URINE NEGATIVE (NEGATIVE); LEUKOCYTE ESTERASE URINE NEGATIVE (NEGATIVE); NITRITE URINE NEGATIVE (NEGATIVE); OCCULT BLOOD URINE NEGATIVE (NEGATIVE); PROTEIN URINE NEGATIVE (NEGATIVE); SPECIFIC GRAVITY URINE 1.014 (1.005-1.030); UROBILINOGEN URINE 0.2 E.U./dL (0.2-1.0)
[2016-08-26] MEDS ORDERED: ENOXAPARIN 40MG/0.4ML SYR SUBCUT SCH (17:00)
[2016-08-26 17:28] LABS: *AMPHETAMINES SCREEN URINE NEGATIVE (NEGATIVE); *BARBITURATES SCREEN URINE NEGATIVE (NEGATIVE); *BENZODIAZEPINES SCREEN URINE NEGATIVE (NEGATIVE); *COCAINE SCREEN URINE NEGATIVE (NEGATIVE); CANNABINOID URINE SCREEN NEGATIVE (NEGATIVE); METHADONE URINE SCREEN NEGATIVE (NEGATIVE); OPIATES URINE SCREEN PRESUMTIVE POSITIVE (NEGATIVE); PHENCYCLIDINE URINE SCREEN NEGATIVE (NEGATIVE)
[2016-08-26] MEDS ORDERED: BUDESONIDE 0.5MG/2ML NEB HHN SCH (18:00)
[2016-08-26] MEDS ORDERED: DEXTROSE 50% WATER 50ML SYRINGE IV PRN (19:15)
[2016-08-26] MEDS ORDERED: HYDROCODONE/ACETAMINOPHEN 10/325MG TABLET PO PRN (19:30)
[2016-08-26] MEDS ORDERED: BLOOD SUGAR DIAGNOSTIC STRIP TEST SCH (21:00)
[2016-08-26] MEDS ORDERED: INSULIN LISPRO 100 UNITS/ML SUBCUT SCH (21:00)
[2016-08-26] MEDS ORDERED: ZOLPIDEM TARTRATE 5MG TABLET PO PRN (21:00)
[2016-08-26] MEDS: IPRATROPIUM/ALBUTEROL 0.5-3(2.5)MG/3ML NEB HHN SCH (21:33)
[2016-08-26] MEDS ORDERED: OXYCODONE HCL 5MG TABLET PO PRN (22:00)
[2016-08-26] MEDS ORDERED: MORPHINE SULFATE 30MG TABLET SR PO SCH (22:00)
[2016-08-27 03:42] VITALS: BP 126/80
[2016-08-27] MEDS: IPRATROPIUM/ALBUTEROL 0.5-3(2.5)MG/3ML NEB HHN SCH (03:42)
[2016-08-27] MEDS ORDERED: OMEPRAZOLE 20MG CAPSULE EXTENDED RELEASE PO SCH (07:30)
== END 2016-08-27 05:41 | disposition left against medical advice (07) | DRG 291 ==
LOC: ER 08:59 → 5EST 15:05 → ORIP 16:16 → 3WST 16:21
PROVIDERS: ADMIT Family Medicine Adult Medicine; ATTEND Family Medicine Adult Medicine
DX: I11.0 Hypertensive heart disease with heart failure (principal); J96.01 Acute respiratory failure with hypoxia; J45.901 Unspecified asthma with (acute) exacerbation; E87.2 Acidosis; I50.23 Acute on chronic systolic (congestive) heart failure; I42.9 Cardiomyopathy, unspecified; J44.9 Chronic obstructive pulmonary disease, unspecified; G89.29 Other chronic pain; I25.10 Atherosclerotic heart disease of native coronary artery without angina pectoris; Z53.21 Procedure and treatment not carried out due to patient leaving prior to being seen by health care provider; Z99.81 Dependence on supplemental oxygen; Z95.1 Presence of aortocoronary bypass graft; Z91.012 Allergy to eggs; Z79.82 Long term (current) use of aspirin; Z79.899 Other long term (current) drug therapy; Z90.49 Acquired absence of other specified parts of digestive tract; Z87.891 Personal history of nicotine dependence; Z72.89 Other problems related to lifestyle; Z80.9 Family history of malignant neoplasm, unspecified
CPT/HCPCS: 36415; 71010; 78582; 80053; 80305; 81003; 82962; 83605; 83880; 84484; 85025; 85610; 87040; 93005; 93970; 94640; 96361; 96374; 96375; 96376; 99285; A9558; C1893; J1650; J1815; J2270; J2405; J2930; J7030; J7040; J7611

== ENCOUNTER 2016-09-16 19:52 | Inpatient (IN) | payer MEDICARE, MEDICAID ==
[~2016-09-16] VITALS: Ht 154.9 cm; Wt 62.6 kg
[~2016-09-16 19:52] MED LIST changes: +EZET10TA PO; -ZET10 PO
[2016-09-16] MEDS ORDERED: ALBUTEROL (0.083%) 2.5MG/3ML NEB HHN STA (20:29)
[2016-09-16 20:49] LABS: BASOPHILS % 0.7 % (0.0-2.0); EOSINOPHILS % 1.4 % (0.0-5.0); HEMOGLOBIN. 13.7 g/dL (12.0-16.0); LYMPHOCYTES % 35.6 % (20.0-50.0); MEAN CORPUSCULAR HEMOGLOBIN 27.5 pg (28.0-32.0); MEAN CORPUSCULAR VOLUME 86.4 fL (81.0-99.0); MEAN PLATELET VOLUME 7.3 fl (7.4-10.4); MONOCYTES % 12.1 % (2.0-8.0); NEUTROPHILS % 50.2 % (40.0-76.0); PLATELET 231 x1000/uL (130-400); RED BLOOD CELL COUNT 4.97 mill/uL (4.2-5.4); RED CELL DISTRIBUTION WIDTH 20.9 % (11.6-14.6)
[2016-09-16 20:51] LABS: CHLORIDE 99 mEq/L (98-107)
[2016-09-16 20:52] LABS: INR 1.1; PROTHROMBIN TIME 11.2 sec
[2016-09-16 20:55] LABS: CARBON DIOXIDE 32 mEq/L (21-32)
[2016-09-16 21:02] LABS: ETHANOL BLOOD 126 mg/dL; TROPONIN I 0.14 ng/mL (0.00-0.04)
[2016-09-16] MEDS ORDERED: ASPIRIN 81MG TABLET PO ONE (21:15)
[2016-09-16 22:43] LABS: *AMPHETAMINES SCREEN URINE NEGATIVE (NEGATIVE); *BARBITURATES SCREEN URINE NEGATIVE (NEGATIVE); *BENZODIAZEPINES SCREEN URINE NEGATIVE (NEGATIVE); *COCAINE SCREEN URINE NEGATIVE (NEGATIVE); CANNABINOID URINE SCREEN NEGATIVE (NEGATIVE); METHADONE URINE SCREEN NEGATIVE (NEGATIVE); OPIATES URINE SCREEN PRESUMTIVE POSITIVE (NEGATIVE); PHENCYCLIDINE URINE SCREEN NEGATIVE (NEGATIVE)
[2016-09-16] MEDS ORDERED: HYDROCODONE/ACETAMINOPHEN 5/325MG TABLET PO ONE (22:45)
[2016-09-16 23:42] VITALS: BP 135/78
[2016-09-17] MEDS ORDERED: GABA-531 PO (00:38)
[2016-09-17] MEDS ORDERED: IPRATROPIUM/ALBUTEROL 0.5-3(2.5)MG/3ML NEB HHN PRN (01:30)
[2016-09-17] MEDS ORDERED: ZOLPIDEM TARTRATE 5MG TABLET PO PRN (01:45)
[2016-09-17 04:00] VITALS: BP_SYST 146; BP_DIAS 1; BP_DIAS 91
[2016-09-17] MEDS: IPRATROPIUM/ALBUTEROL 0.5-3(2.5)MG/3ML NEB HHN SCH ×5 (04:13→20:30)
[2016-09-17] MEDS: HYDROCODONE/ACETAMINOPHEN 5/325MG TABLET PO PRN ×3 (05:18→17:30)
[2016-09-17] MEDS ORDERED: ALBUTEROL (0.083%) 2.5MG/3ML NEB HHN SCH (06:00)
[2016-09-17 07:46] VITALS: BP 117/82
[2016-09-17] MEDS ORDERED: LOSARTAN POTASSIUM 25 MG TABLET PO SCH (09:00)
[2016-09-17] MEDS ORDERED: FUROSEMIDE 40MG/4ML VIAL IVP SCH (09:00)
[2016-09-17] MEDS ORDERED: MEDICATION NOT ON FORMULARY EA (Fluticasone/Salmeterol (Advair 250-50 Diskus) 1 PUFF) IH SCH (09:00)
[2016-09-17] MEDS: EZETIMIBE 10MG TABLET PO SCH (09:12)
[2016-09-17] MEDS: LISINOPRIL 10MG TABLET PO SCH (09:12)
[2016-09-17] MEDS: OMEPRAZOLE 20MG CAPSULE EXTENDED RELEASE PO SCH (09:13)
[2016-09-17] MEDS: CARVEDILOL 12.5MG TABLET PO SCH ×2 (09:13→21:05)
[2016-09-17] MEDS: DULOXETINE HCL 60MG DR CAPSULE PO SCH ×2 (09:13→17:26)
[2016-09-17] MEDS: MORPHINE SULFATE 15MG TABLET SR PO SCH ×2 (09:13→21:06)
[2016-09-17] MEDS: GABAPENTIN 300MG CAPSULE PO SCH ×3 (09:13→17:26)
[2016-09-17] MEDS: ENOXAPARIN 40MG/0.4ML SYR SUBCUT SCH (09:14)
[2016-09-17] MEDS: CLOPIDOGREL 75MG TABLET PO SCH (09:14)
[2016-09-17] MEDS: ASPIRIN 325MG TABLET PO SCH (09:17)
[2016-09-17 11:38] VITALS: BP 139/84
[2016-09-17 15:54] VITALS: BP 140/79
[2016-09-17] MEDS: FUROSEMIDE 40MG/4ML VIAL IVP SCH (17:22)
[2016-09-17 20:00] VITALS: BP 112/82
[2016-09-17] MEDS: BUDESONIDE 0.5MG/2ML NEB HHN SCH (20:31)
[2016-09-17] MEDS: TRAZODONE HCL 100MG TABLET PO SCH (21:05)
[2016-09-17] MEDS: ATORVASTATIN CALCIUM 20MG TABLET PO SCH (21:05)
[2016-09-17] MEDS: MONTELUKAST SODIUM 10MG TABLET PO SCH (21:05)
[2016-09-17] MEDS: CARISOPRODOL 350 MG TABLET PO PRN (21:12)
[2016-09-18] VITALS: BP 123/71
[2016-09-18] MEDS: IPRATROPIUM/ALBUTEROL 0.5-3(2.5)MG/3ML NEB HHN SCH ×6 (00:21→20:20)
[2016-09-18] MEDS: HYDROCODONE/ACETAMINOPHEN 5/325MG TABLET PO PRN ×3 (02:37→18:27)
[2016-09-18 04:00] VITALS: BP 132/66
[2016-09-18] MEDS: FUROSEMIDE 40MG/4ML VIAL IVP SCH ×2 (06:20→18:22)
[2016-09-18 07:46] VITALS: BP 128/97
[2016-09-18] MEDS: BUDESONIDE 0.5MG/2ML NEB HHN SCH ×2 (08:45→20:20)
[2016-09-18] MEDS: CLOPIDOGREL 75MG TABLET PO SCH (08:53)
[2016-09-18] MEDS: LISINOPRIL 10MG TABLET PO SCH (08:53)
[2016-09-18] MEDS: DULOXETINE HCL 60MG DR CAPSULE PO SCH ×2 (08:53→17:29)
[2016-09-18] MEDS: CARVEDILOL 12.5MG TABLET PO SCH ×2 (08:53→20:34)
[2016-09-18] MEDS: EZETIMIBE 10MG TABLET PO SCH (08:54)
[2016-09-18] MEDS: MORPHINE SULFATE 15MG TABLET SR PO SCH ×2 (08:54→20:36)
[2016-09-18] MEDS: ENOXAPARIN 40MG/0.4ML SYR SUBCUT SCH (08:54)
[2016-09-18] MEDS: OMEPRAZOLE 20MG CAPSULE EXTENDED RELEASE PO SCH (08:58)
[2016-09-18] MEDS: ASPIRIN 325MG TABLET PO SCH (08:58)
[2016-09-18] MEDS: GABAPENTIN 300MG CAPSULE PO SCH ×3 (08:58→17:29)
[2016-09-18] MEDS: CARISOPRODOL 350 MG TABLET PO PRN ×2 (09:41→20:36)
[2016-09-18 12:00] VITALS: BP 128/82
[2016-09-18] MEDS: MULTIVITAMINS,THER W-MINERALS TABLET PO SCH (13:29)
[2016-09-18] MEDS: THIAMINE HCL 100MG TABLET PO SCH (13:29)
[2016-09-18 16:15] VITALS: BP 106/60
[2016-09-18 20:00] VITALS: BP 108/60
[2016-09-18] MEDS: TRAZODONE HCL 100MG TABLET PO SCH (20:36)
[2016-09-18] MEDS: MONTELUKAST SODIUM 10MG TABLET PO SCH (20:36)
[2016-09-18] MEDS: ATORVASTATIN CALCIUM 20MG TABLET PO SCH (20:36)
[2016-09-19] VITALS: BP 98/71
[2016-09-19] MEDS: IPRATROPIUM/ALBUTEROL 0.5-3(2.5)MG/3ML NEB HHN SCH ×3 (00:25→08:31)
[2016-09-19] MEDS: HYDROCODONE/ACETAMINOPHEN 5/325MG TABLET PO PRN ×2 (01:07→06:23)
[2016-09-19 04:00] VITALS: BP 139/78
[2016-09-19 06:19] LABS: BASOPHILS % 0.5 % (0.0-2.0); EOSINOPHILS % 1.8 % (0.0-5.0); HEMATOCRIT. 39.5 % (36.0-48.0); HEMOGLOBIN. 12.7 g/dL (12.0-16.0); LYMPHOCYTES % 35.4 % (20.0-50.0); MEAN CORPUSCULAR HEMOGLOBIN 27.4 pg (28.0-32.0); MEAN PLATELET VOLUME 7.9 fl (7.4-10.4); MONOCYTES % 12.3 % (2.0-8.0); PLATELET 203 x1000/uL (130-400); RED BLOOD CELL COUNT 4.64 mill/uL (4.2-5.4); RED CELL DISTRIBUTION WIDTH 20.2 % (11.6-14.6)
[2016-09-19] MEDS: FUROSEMIDE 40MG/4ML VIAL IVP SCH (06:22)
[2016-09-19 07:28] LABS: CARBON DIOXIDE 35 mEq/L (21-32); CHLORIDE 96 mEq/L (98-107)
[2016-09-19 08:00] VITALS: BP 110/56
[2016-09-19] MEDS: CARVEDILOL 12.5MG TABLET PO SCH (08:13)
[2016-09-19] MEDS: LISINOPRIL 10MG TABLET PO SCH (08:13)
[2016-09-19] MEDS: DULOXETINE HCL 60MG DR CAPSULE PO SCH (08:31)
[2016-09-19] MEDS: ASPIRIN 325MG TABLET PO SCH (08:31)
[2016-09-19] MEDS: BUDESONIDE 0.5MG/2ML NEB HHN SCH (08:31)
[2016-09-19 08:32] VITALS: BP 110/56
[2016-09-19] MEDS: MORPHINE SULFATE 15MG TABLET SR PO SCH (08:32)
[2016-09-19] MEDS: CLOPIDOGREL 75MG TABLET PO SCH (08:33)
[2016-09-19] MEDS: EZETIMIBE 10MG TABLET PO SCH (08:33)
[2016-09-19] MEDS: ENOXAPARIN 40MG/0.4ML SYR SUBCUT SCH (08:33)
[2016-09-19] MEDS: MULTIVITAMINS,THER W-MINERALS TABLET PO SCH (08:33)
[2016-09-19] MEDS: THIAMINE HCL 100MG TABLET PO SCH (08:33)
[2016-09-19] MEDS: CARISOPRODOL 350 MG TABLET PO PRN (08:34)
[2016-09-19] MEDS: GABAPENTIN 300MG CAPSULE PO SCH (08:41)
[2016-09-19] MEDS ORDERED: FAMOTIDINE 20MG TABLET PO SCH (09:00)
[2016-09-19] MEDS ORDERED: FOLIC ACID 1MG TABLET PO SCH (09:00)
[2016-09-19] MEDS ORDERED: POTASSIUM CHLORIDE 20MEQ TABLET SR PO SCH (09:30)
== END 2016-09-19 10:37 | disposition left against medical advice (07) | DRG 291 ==
LOC: ER 19:58 → 7WST 22:19 → ENRESERV 22:43 → ER 23:41 → 7WST 09-17 05:39
PROVIDERS: ADMIT Specialist; ATTEND Specialist
DX: I11.0 Hypertensive heart disease with heart failure (principal); J96.20 Acute and chronic respiratory failure, unspecified whether with hypoxia or hypercapnia; J44.1 Chronic obstructive pulmonary disease with (acute) exacerbation; I50.23 Acute on chronic systolic (congestive) heart failure; I50.22 Chronic systolic (congestive) heart failure; I25.10 Atherosclerotic heart disease of native coronary artery without angina pectoris; F10.10 Alcohol abuse, uncomplicated; E11.9 Type 2 diabetes mellitus without complications; E78.5 Hyperlipidemia, unspecified; G89.29 Other chronic pain; Z53.21 Procedure and treatment not carried out due to patient leaving prior to being seen by health care provider; M54.5 Low back pain; Z96.649 Presence of unspecified artificial hip joint; I25.5 Ischemic cardiomyopathy; R56.9 Unspecified convulsions; Z91.19 Patient's noncompliance with other medical treatment and regimen; Z99.81 Dependence on supplemental oxygen; Z95.1 Presence of aortocoronary bypass graft; Z90.49 Acquired absence of other specified parts of digestive tract; Z91.012 Allergy to eggs; Z79.84 Long term (current) use of oral hypoglycemic drugs; Z79.51 Long term (current) use of inhaled steroids; Z79.899 Other long term (current) drug therapy
CPT/HCPCS: 36415; 71010; 80048; 80305; 83735; 83880; 84484; 85025; 85610; 93005; 94640; 97161; 97530; 99291; A6261; C1893; G0482; J1650; J1940; J7611; J7620; J7626; A4315

== ENCOUNTER 2016-11-02 06:15 | Inpatient (IN) | payer MEDICARE, MEDICAID ==
[2016-11-02] VITALS (25 sets, daily range): BP systolic 43–146; BP diastolic 24–104
[~2016-11-02] VITALS: Ht 154.9 cm; Wt 76.8 kg
[~2016-11-02 06:15] MED LIST changes: -EZET10TA PO; +GABA-531 PO; -GABAPENTIN PO; -METF10002 PO; -METO10TA3 PO; -OXYC10TA48 PO; -POTA20TA82 PO; -PRO-AIR INHALER INH; -VYT1080; +ZET10 PO
[2016-11-02] MEDS ORDERED: POTA20TA12 PO (07:48)
[2016-11-02] MEDS ORDERED: DIPH1TAB76 PO (07:48)
[2016-11-02] MEDS ORDERED: GABA-533 PO (07:48)
[2016-11-02] MEDS ORDERED: LINA5TAB PO (07:48)
[2016-11-02] MEDS ORDERED: MIDAZOLAM HCL 2 MG/2 ML VIAL ONE (09:59)
[2016-11-02] MEDS ORDERED: HEPARIN SODIUM 1,000 UNIT/1ML VIAL IV ONE ×2 (09:59→10:00)
[2016-11-02] MEDS ORDERED: HYDROMORPHONE HCL/PF 2MG/ML (OR) ONE (10:00)
[2016-11-02] MEDS ORDERED: IOVERSOL 240MG/ML 100ML BOTTLE IV ONE (10:00)
[2016-11-02] MEDS ORDERED: IODIXANOL 320MG/ML 100 ML BOTTLE IV ONE (10:00)
[2016-11-02] MEDS ORDERED: FENTANYL CITRATE/PF 50MCG/ML 2ML VIAL ONE (10:00)
[2016-11-02] MEDS ORDERED: LIDOCAINE HCL 1% 20ML VIAL (Pyxis) INJ ONE (10:01)
[2016-11-02] MEDS ORDERED: CLOPIDOGREL 75MG TABLET ONE (10:05)
[2016-11-02] MEDS ORDERED: MORPHINE SULFATE 15MG TABLET SR PO NR (11:11)
[2016-11-02] MEDS: DULOXETINE HCL 60MG DR CAPSULE PO SCH ×2 (11:33→21:00)
[2016-11-02] MEDS: HYDROCODONE/ACETAMINOPHEN 10/325MG TABLET PO PRN ×2 (12:28→19:45)
[2016-11-02] MEDS ORDERED: IPRATROPIUM/ALBUTEROL 0.5-3(2.5)MG/3ML NEB HHN PRN (14:00)
[2016-11-02] MEDS ORDERED: MEDICATION NOT ON FORMULARY EA (Simvastatin 40 MG) PO SCH (17:00)
[2016-11-02] MEDS ORDERED: TRAZODONE HCL 100MG TABLET PO SCH (21:00)
[2016-11-02] MEDS ORDERED: ATORVASTATIN CALCIUM 20MG TABLET PO SCH (21:00)
[2016-11-02] MEDS: MORPHINE SULFATE 15MG TABLET SR PO SCH (21:01)
[2016-11-02] MEDS: CARISOPRODOL 350 MG TABLET PO PRN (21:05)
[2016-11-03 00:02] VITALS: BP 113/76
[2016-11-03 02:00] VITALS: BP 109/67
[2016-11-03 04:00] VITALS: BP 110/69
[2016-11-03] MEDS: HYDROCODONE/ACETAMINOPHEN 10/325MG TABLET PO PRN (05:04)
[2016-11-03 06:00] VITALS: BP 124/74
[2016-11-03 07:04] LABS: HEMATOCRIT. 35.3 % (36.0-48.0); HEMOGLOBIN. 11.4 g/dL (12.0-16.0); MEAN CORPUSCULAR HEMOGLOBIN 28.3 pg (28.0-32.0); MEAN CORPUSCULAR VOLUME 87.4 fL (81.0-99.0); MEAN PLATELET VOLUME 7.7 fl (7.4-10.4); PLATELET 199 x1000/uL (130-400); RED BLOOD CELL COUNT 4.04 mill/uL (4.2-5.4); RED CELL DISTRIBUTION WIDTH 17.8 % (11.6-14.6)
[2016-11-03 07:20] LABS: CARBON DIOXIDE 31 mEq/L (21-32); CHLORIDE 100 mEq/L (98-107)
[2016-11-03 07:54] VITALS: BP 127/79
[2016-11-03] MEDS: MORPHINE SULFATE 15MG TABLET SR PO SCH (08:20)
[2016-11-03] MEDS: DULOXETINE HCL 60MG DR CAPSULE PO SCH (08:20)
[2016-11-03] MEDS: CARISOPRODOL 350 MG TABLET PO PRN (08:24)
[2016-11-03] MEDS ORDERED: POTASSIUM CHLORIDE 20MEQ TABLET SR PO SCH (09:00)
[2016-11-03] MEDS ORDERED: LOSARTAN POTASSIUM 25 MG TABLET PO SCH (09:00)
[2016-11-03] MEDS ORDERED: CLOPIDOGREL 75MG TABLET PO SCH (09:00)
[2016-11-03] MEDS ORDERED: ASPIRIN 325MG TABLET PO SCH (09:00)
[2016-11-03] MEDS ORDERED: EZETIMIBE 10MG TABLET PO SCH (09:00)
[2016-11-03] MEDS ORDERED: LINAGLIPTIN 5MG TABLET PO SCH (09:00)
[2016-11-03] MEDS ORDERED: FUROSEMIDE 20MG TABLET PO SCH (09:00)
[2016-11-03 09:56] VITALS: BP 124/85
[2016-11-03 14:32] LABS: ATYPICAL LYMPHOCYTES 2; PLATELET ESTIMATE NORMAL
== END 2016-11-03 10:26 | disposition home health service (06) | DRG 253 ==
LOC: CCL 06:15 → 3WST 06:16
PROVIDERS: ADMIT Specialist; ATTEND Specialist
PROC: 047H3DZ Dilation of Right External Iliac Artery with Intraluminal Device, Percutaneous Approach (ICD-10-PCS; principal; 2016-11-02)
PROC: 047K3DZ Dilation of Right Femoral Artery with Intraluminal Device, Percutaneous Approach (ICD-10-PCS; 2016-11-02)
PROC: B41F1ZZ Fluoroscopy of Right Lower Extremity Arteries using Low Osmolar Contrast (ICD-10-PCS; 2016-11-02)
DX: I73.9 Peripheral vascular disease, unspecified (principal); I42.9 Cardiomyopathy, unspecified; I11.9 Hypertensive heart disease without heart failure; E78.5 Hyperlipidemia, unspecified; I25.10 Atherosclerotic heart disease of native coronary artery without angina pectoris; I70.8 Atherosclerosis of other arteries; J44.9 Chronic obstructive pulmonary disease, unspecified; I25.2 Old myocardial infarction; Z95.1 Presence of aortocoronary bypass graft
CPT/HCPCS: 36415; 37221; 37226; 75710; 80048; 82962; 85025; 85347; C1725; C1769; C1887; C1893; C1894; J1170; J1644; J2250; J3010; J3490; Q9967

== ENCOUNTER 2016-12-02 18:41 | Inpatient (IN) | payer MEDICARE, MEDICAID ==
[~2016-12-02] VITALS: Ht 154.9 cm; Wt 74.8 kg
[~2016-12-02 18:41] MED LIST changes: -CLOP75TA33 PO; -COR6 PO; +DIPH1TAB76 PO; -GABA-531 PO; +GABA-533 PO; +LINA5TAB PO; -LISI-651 PO; -MONT10TA21 PO; +POTA20TA12 PO
[2016-12-02] MEDS ORDERED: IPRATROPIUM BROMIDE (0.02%) 0.5MG/2.5ML NEB HHN STA (22:36)
[2016-12-02] MEDS ORDERED: ALBUTEROL (0.083%) 2.5MG/3ML NEB HHN STA (22:36)
[2016-12-02] MEDS ORDERED: METHYLPREDNISOLONE SOD SUCC 125 MG/2 ML VIAL IV STA (22:36)
[2016-12-02] MEDS ORDERED: LEVOFLOXACIN 750MG PREMIX 150 ML IV STA (22:36)
[2016-12-02] MEDS ORDERED: MAGNESIUM 2 G PREMIX 50 ML IV ONE (22:45)
[2016-12-02] MEDS ORDERED: NITROGLYCERIN OINT 1GM/INCH UDPKT TD ONE (22:45)
[2016-12-02] MEDS ORDERED: ASPIRIN 81MG TABLET PO ONE (22:45)
[2016-12-02 23:42] LABS: BG BASE EXCESS 2.6 mmol/L (-2.0-2.0); BG CARBOXYHEMOGLOBIN 4.4 % (0.5-1.5); BG DEOXYHEMOGLOBIN 8.7 % (0.0-5.0); BG FRACTION INSPIRED OXYGEN 21; BG HCO3 ACT 30.5 mmol/L (22.0-26.0); BG METHEMOGLOBIN 0.1 % (0.0-1.5); BG OXYGEN SATURATION 90.9 % (92.0-98.5); BG OXYHEMOGLOBIN 86.8 % (94.0-97.0); BG PCO2 60.8 mmHg (35.0-45.0); BG PH 7.318 (7.350-7.450); BG PO2 62.9 mmHg (75.0-100.0); BG SAMPLE SITE RIGHT RADIAL; BG TOTAL HEMOGLOBIN 14.8 g/dL (12.0-18.0); BG VENT MODE ROOM AIR
[2016-12-03] VITALS (8 sets, daily range): BP systolic 115–150; BP diastolic 64–80
[2016-12-03] LABS: HEMATOCRIT. 43.6 % (36.0-48.0); HEMOGLOBIN. 13.9 g/dL (12.0-16.0); MEAN CORPUSCULAR HEMOGLOBIN 28.8 pg (28.0-32.0); MEAN CORPUSCULAR VOLUME 90.5 fL (81.0-99.0); MEAN PLATELET VOLUME 8.4 fl (7.4-10.4); PLATELET 252 x1000/uL (130-400); RED BLOOD CELL COUNT 4.82 mill/uL (4.2-5.4); RED CELL DISTRIBUTION WIDTH 15.8 % (11.6-14.6)
[2016-12-03 00:05] LABS: D-DIMER 0.75 mg/L FEU (<0.50); INR 1.1; PARTIAL THROMBOPLASTIN TIME 26.2 sec (23.4-31.0); PROTHROMBIN TIME 11.8 sec (9.4-11.6)
[2016-12-03 00:11] LABS: CARBON DIOXIDE 27 mEq/L (21-32); CHLORIDE 98 mEq/L (98-107); ETHANOL BLOOD < 10 mg/dL; TROPONIN I 0.16 ng/mL (0.00-0.04)
[2016-12-03 01:40] LABS: CLARITY URINE CLEAR (CLEAR); COLOR URINE YELLOW (YELLOW); GLUCOSE URINE 2+ (NEGATIVE); KETONES URINE NEGATIVE (NEGATIVE); LEUKOCYTE ESTERASE URINE NEGATIVE (NEGATIVE); NITRITE URINE NEGATIVE (NEGATIVE); OCCULT BLOOD URINE NEGATIVE (NEGATIVE); PH URINE 6.5 (4.5-8.0); PROTEIN URINE 1+ (NEGATIVE); SPECIFIC GRAVITY URINE 1.023 (1.005-1.030); UROBILINOGEN URINE 0.2 E.U./dL (0.2-1.0)
[2016-12-03 02:38] LABS: PLATELET ESTIMATE NORMAL
[2016-12-03] MEDS ORDERED: FUROSEMIDE 40MG/4ML VIAL IVP NR (04:00)
[2016-12-03] MEDS: FUROSEMIDE 40MG TABLET PO SCH ×2 (10:30→11:00)
[2016-12-03] MEDS: METHYLPREDNISOLONE SOD SUCC 125 MG/2 ML VIAL IV SCH ×3 (10:59→21:00)
[2016-12-03] MEDS: AMLODIPINE 5MG TABLET PO SCH (11:00)
[2016-12-03] MEDS: LINAGLIPTIN 5MG TABLET PO SCH (11:00)
[2016-12-03] MEDS: ASPIRIN 81MG EC TABLET PO SCH (11:00)
[2016-12-03] MEDS: LOSARTAN POTASSIUM 25 MG TABLET PO SCH (11:00)
[2016-12-03] MEDS: IPRATROPIUM/ALBUTEROL 0.5-3(2.5)MG/3ML NEB HHN SCH ×3 (13:15→21:43)
[2016-12-03] MEDS: HYDROCODONE/ACETAMINOPHEN 5/325MG TABLET PO PRN ×3 (13:58→23:45)
[2016-12-03] MEDS: GABAPENTIN 400MG CAPSULE PO SCH (16:25)
[2016-12-03] MEDS: ATORVASTATIN CALCIUM 40MG TABLET PO SCH (21:00)
[2016-12-03] MEDS: ZOLPIDEM TARTRATE 5MG TABLET PO PRN (21:08)
[2016-12-04] VITALS (12 sets, daily range): BP systolic 110–143; BP diastolic 66–87
[2016-12-04] MEDS: LEVOFLOXACIN 500MG PREMIX 100 ML IV SCH (00:13)
[2016-12-04] MEDS: HYDROCODONE/ACETAMINOPHEN 5/325MG TABLET PO PRN ×2 (03:58→19:45)
[2016-12-04] MEDS: METHYLPREDNISOLONE SOD SUCC 125 MG/2 ML VIAL IV SCH (07:10)
[2016-12-04] MEDS: OMEPRAZOLE 20MG CAPSULE EXTENDED RELEASE PO SCH (07:10)
[2016-12-04 07:43] LABS: BASOPHILS % 0.1 % (0.0-2.0); HEMATOCRIT. 39.9 % (36.0-48.0); HEMOGLOBIN. 12.8 g/dL (12.0-16.0); LYMPHOCYTES % 13.7 % (20.0-50.0); MEAN CORPUSCULAR HEMOGLOBIN 28.6 pg (28.0-32.0); MEAN CORPUSCULAR VOLUME 89.7 fL (81.0-99.0); MEAN PLATELET VOLUME 8.2 fl (7.4-10.4); MONOCYTES % 5.8 % (2.0-8.0); NEUTROPHILS % 80.4 % (40.0-76.0); PLATELET 276 x1000/uL (130-400); RED BLOOD CELL COUNT 4.45 mill/uL (4.2-5.4); RED CELL DISTRIBUTION WIDTH 15.9 % (11.6-14.6)
[2016-12-04 08:40] LABS: CARBON DIOXIDE 29 mEq/L (21-32); CHLORIDE 92 mEq/L (98-107); TROPONIN I 0.06 ng/mL (0.00-0.04)
[2016-12-04] MEDS: IPRATROPIUM/ALBUTEROL 0.5-3(2.5)MG/3ML NEB HHN SCH ×4 (08:57→20:23)
[2016-12-04 09:00] LABS: BG BASE EXCESS 4.8 mmol/L (-2.0-2.0); BG FRACTION INSPIRED OXYGEN 28; BG HCO3 ACT 29.7 mmol/L (22.0-26.0); BG METHEMOGLOBIN 0.1 % (0.0-1.5); BG OXYGEN SATURATION 94.9 % (92.0-98.5); BG OXYHEMOGLOBIN 93.9 % (94.0-97.0); BG PCO2 45.2 mmHg (35.0-45.0); BG PH 7.436 (7.350-7.450); BG PO2 70.2 mmHg (75.0-100.0); BG SAMPLE SITE RIGHT BRACHIAL; BG TOTAL HEMOGLOBIN 13.4 g/dL (12.0-18.0); BG VENT MODE NASAL CANNULA
[2016-12-04] MEDS: AMLODIPINE 5MG TABLET PO SCH (09:05)
[2016-12-04] MEDS: FUROSEMIDE 40MG TABLET PO SCH (09:05)
[2016-12-04] MEDS: ASPIRIN 81MG EC TABLET PO SCH (09:06)
[2016-12-04] MEDS: LOSARTAN POTASSIUM 25 MG TABLET PO SCH (09:06)
[2016-12-04] MEDS: GABAPENTIN 400MG CAPSULE PO SCH ×2 (09:06→16:22)
[2016-12-04] MEDS: LINAGLIPTIN 5MG TABLET PO SCH (09:06)
[2016-12-04] MEDS ORDERED: DOCUSATE SODIUM 100MG CAPSULE PO PRN (13:45)
[2016-12-04] MEDS ORDERED: ONDANSETRON HCL 4MG/2ML VIAL IV PRN (13:45)
[2016-12-04] MEDS: ENOXAPARIN 40MG/0.4ML SYR SUBCUT SCH (16:23)
[2016-12-04] MEDS: CARISOPRODOL 350 MG TABLET PO PRN (16:23)
[2016-12-04] MEDS: TRAZODONE HCL 100MG TABLET PO SCH (20:19)
[2016-12-04] MEDS: METHYLPREDNISOLONE SOD SUCC 40 MG/ML VIAL IV SCH (20:19)
[2016-12-04] MEDS: ATORVASTATIN CALCIUM 40MG TABLET PO SCH (20:19)
[2016-12-05] VITALS (12 sets, daily range): BP systolic 104–133; BP diastolic 62–79
[2016-12-05] MEDS: LEVOFLOXACIN 500MG PREMIX 100 ML IV SCH (00:27)
[2016-12-05] MEDS: HYDROCODONE/ACETAMINOPHEN 5/325MG TABLET PO PRN ×3 (04:15→20:31)
[2016-12-05 06:51] LABS: BASOPHILS % 0.3 % (0.0-2.0); HEMATOCRIT. 39.1 % (36.0-48.0); HEMOGLOBIN. 12.6 g/dL (12.0-16.0); LYMPHOCYTES % 13.2 % (20.0-50.0); MEAN CORPUSCULAR HEMOGLOBIN 28.9 pg (28.0-32.0); MEAN CORPUSCULAR VOLUME 89.6 fL (81.0-99.0); MEAN PLATELET VOLUME 8.3 fl (7.4-10.4); MONOCYTES % 9.3 % (2.0-8.0); NEUTROPHILS % 77.2 % (40.0-76.0); PLATELET 282 x1000/uL (130-400); RED BLOOD CELL COUNT 4.36 mill/uL (4.2-5.4); RED CELL DISTRIBUTION WIDTH 15.5 % (11.6-14.6)
[2016-12-05] MEDS: CARISOPRODOL 350 MG TABLET PO PRN (06:53)
[2016-12-05] MEDS: OMEPRAZOLE 20MG CAPSULE EXTENDED RELEASE PO SCH (06:53)
[2016-12-05 08:22] LABS: CARBON DIOXIDE 31 mEq/L (21-32); CHLORIDE 92 mEq/L (98-107); TROPONIN I 0.04 ng/mL (0.00-0.04)
[2016-12-05] MEDS: ASPIRIN 81MG EC TABLET PO SCH (08:23)
[2016-12-05] MEDS: GABAPENTIN 400MG CAPSULE PO SCH ×2 (08:23→17:32)
[2016-12-05] MEDS: LINAGLIPTIN 5MG TABLET PO SCH (08:23)
[2016-12-05] MEDS: AMLODIPINE 5MG TABLET PO SCH (08:23)
[2016-12-05] MEDS: LOSARTAN POTASSIUM 25 MG TABLET PO SCH (08:24)
[2016-12-05] MEDS: METHYLPREDNISOLONE SOD SUCC 40 MG/ML VIAL IV SCH ×2 (08:24→20:32)
[2016-12-05] MEDS: FUROSEMIDE 40MG TABLET PO SCH (08:24)
[2016-12-05] MEDS: IPRATROPIUM/ALBUTEROL 0.5-3(2.5)MG/3ML NEB HHN SCH ×4 (10:15→21:44)
[2016-12-05] MEDS ORDERED: LACTULOSE 20G/30ML UDC PO NR (10:30)
[2016-12-05] MEDS ORDERED: BISACODYL 5MG TABLET PO PRN (10:30)
[2016-12-05] MEDS: CLOPIDOGREL 75MG TABLET PO SCH (11:53)
[2016-12-05] MEDS: ENOXAPARIN 40MG/0.4ML SYR SUBCUT SCH (15:27)
[2016-12-05] MEDS ORDERED: MAGNESIUM SULFATE 3 GM in DEXT 5% WATER 96 ML IV NR (17:00)
[2016-12-05] MEDS: ATORVASTATIN CALCIUM 40MG TABLET PO SCH (20:32)
[2016-12-05] MEDS: TRAZODONE HCL 100MG TABLET PO SCH (20:32)
[2016-12-05] MEDS: ZOLPIDEM TARTRATE 5MG TABLET PO PRN (23:42)
[2016-12-06] VITALS (11 sets, daily range): BP systolic 113–156; BP diastolic 56–96
[2016-12-06] MEDS: LEVOFLOXACIN 500MG PREMIX 100 ML IV SCH (01:39)
[2016-12-06 06:25] LABS: BASOPHILS % 0.1 % (0.0-2.0); HEMOGLOBIN. 13.8 g/dL (12.0-16.0); LYMPHOCYTES % 14.2 % (20.0-50.0); MEAN CORPUSCULAR HEMOGLOBIN 28.7 pg (28.0-32.0); MEAN CORPUSCULAR VOLUME 89.1 fL (81.0-99.0); MONOCYTES % 10.5 % (2.0-8.0); NEUTROPHILS % 75.2 % (40.0-76.0); PLATELET 271 x1000/uL (130-400); RED BLOOD CELL COUNT 4.82 mill/uL (4.2-5.4); RED CELL DISTRIBUTION WIDTH 16.1 % (11.6-14.6)
[2016-12-06] MEDS: HYDROCODONE/ACETAMINOPHEN 5/325MG TABLET PO PRN ×3 (06:28→19:51)
[2016-12-06] MEDS: CARISOPRODOL 350 MG TABLET PO PRN ×2 (06:31→13:21)
[2016-12-06 07:19] LABS: CARBON DIOXIDE 31 mEq/L (21-32); CHLORIDE 95 mEq/L (98-107)
[2016-12-06] MEDS: IPRATROPIUM/ALBUTEROL 0.5-3(2.5)MG/3ML NEB HHN SCH ×4 (08:56→20:25)
[2016-12-06] MEDS: BUDESONIDE 0.5MG/2ML NEB HHN SCH ×2 (08:56→20:25)
[2016-12-06] MEDS: ASPIRIN 81MG EC TABLET PO SCH (09:19)
[2016-12-06] MEDS: GABAPENTIN 400MG CAPSULE PO SCH ×2 (09:19→17:15)
[2016-12-06] MEDS: FAMOTIDINE 20MG TABLET PO SCH ×2 (09:19→21:20)
[2016-12-06] MEDS: METHYLPREDNISOLONE SOD SUCC 40 MG/ML VIAL IV SCH (09:20)
[2016-12-06] MEDS: FUROSEMIDE 40MG TABLET PO SCH (09:20)
[2016-12-06] MEDS: LINAGLIPTIN 5MG TABLET PO SCH (09:20)
[2016-12-06] MEDS: CLOPIDOGREL 75MG TABLET PO SCH (09:20)
[2016-12-06] MEDS: LOSARTAN POTASSIUM 25 MG TABLET PO SCH (09:21)
[2016-12-06] MEDS: AMLODIPINE 5MG TABLET PO SCH (09:21)
[2016-12-06] MEDS: DOCUSATE SODIUM 100MG CAPSULE PO SCH ×2 (13:11→17:16)
[2016-12-06] MEDS ORDERED: MAGNESIUM CITRATE 300ML SOLUTION PO SCH (14:00)
[2016-12-06] MEDS: ENOXAPARIN 40MG/0.4ML SYR SUBCUT SCH (14:45)
[2016-12-06] MEDS: DULOXETINE HCL 60MG DR CAPSULE PO SCH (17:16)
[2016-12-06] MEDS: TRAZODONE HCL 100MG TABLET PO SCH (21:20)
[2016-12-06] MEDS: ATORVASTATIN CALCIUM 40MG TABLET PO SCH (21:20)
[2016-12-06] MEDS: ZOLPIDEM TARTRATE 5MG TABLET PO PRN (23:21)
[2016-12-07] VITALS (9 sets, daily range): BP systolic 108–142; BP diastolic 50–81
[2016-12-07] MEDS: HYDROCODONE/ACETAMINOPHEN 5/325MG TABLET PO PRN ×3 (03:16→16:15)
[2016-12-07 06:45] LABS: BASOPHILS % 0.1 % (0.0-2.0); EOSINOPHILS % 0.8 % (0.0-5.0); LYMPHOCYTES % 27.5 % (20.0-50.0); MEAN CORPUSCULAR HEMOGLOBIN 28.8 pg (28.0-32.0); MEAN CORPUSCULAR VOLUME 88.9 fL (81.0-99.0); MEAN PLATELET VOLUME 7.9 fl (7.4-10.4); MONOCYTES % 11.1 % (2.0-8.0); NEUTROPHILS % 60.5 % (40.0-76.0); PLATELET 253 x1000/uL (130-400); RED CELL DISTRIBUTION WIDTH 15.9 % (11.6-14.6)
[2016-12-07 06:50] LABS: CARBON DIOXIDE 33 mEq/L (21-32); CHLORIDE 95 mEq/L (98-107)
[2016-12-07] MEDS: BUDESONIDE 0.5MG/2ML NEB HHN SCH (08:25)
[2016-12-07] MEDS: IPRATROPIUM/ALBUTEROL 0.5-3(2.5)MG/3ML NEB HHN SCH ×2 (08:25→12:20)
[2016-12-07] MEDS: PREDNISONE 20MG TABLET PO SCH (09:00)
[2016-12-07] MEDS: GABAPENTIN 400MG CAPSULE PO SCH ×2 (09:00→16:14)
[2016-12-07] MEDS: ASPIRIN 81MG EC TABLET PO SCH (09:00)
[2016-12-07] MEDS: DOCUSATE SODIUM 100MG CAPSULE PO SCH ×2 (09:01→16:14)
[2016-12-07] MEDS: DULOXETINE HCL 60MG DR CAPSULE PO SCH ×2 (09:01→16:14)
[2016-12-07] MEDS: LINAGLIPTIN 5MG TABLET PO SCH (09:01)
[2016-12-07] MEDS: FAMOTIDINE 20MG TABLET PO SCH ×2 (09:01→20:47)
[2016-12-07] MEDS: FUROSEMIDE 40MG TABLET PO SCH (09:01)
[2016-12-07] MEDS: CLOPIDOGREL 75MG TABLET PO SCH (09:01)
[2016-12-07] MEDS: AMLODIPINE 5MG TABLET PO SCH (09:02)
[2016-12-07] MEDS: LOSARTAN POTASSIUM 25 MG TABLET PO SCH (09:02)
[2016-12-07] MEDS: CARISOPRODOL 350 MG TABLET PO PRN ×2 (09:02→21:42)
[2016-12-07] MEDS ORDERED: POTASSIUM CHLORIDE 20MEQ TABLET SR PO SCH (10:15)
[2016-12-07] MEDS ORDERED: LEVOFLOXACIN 500MG TABLET PO SCH (11:00)
[2016-12-07] MEDS ORDERED: FUROSEMIDE 40MG/4ML VIAL IVP SCH (13:00)
[2016-12-07] MEDS: ENOXAPARIN 40MG/0.4ML SYR SUBCUT SCH (15:18)
[2016-12-07] MEDS: ATORVASTATIN CALCIUM 40MG TABLET PO SCH (20:47)
[2016-12-07] MEDS: TRAZODONE HCL 100MG TABLET PO SCH (20:47)
[2016-12-07] MEDS: ZOLPIDEM TARTRATE 5MG TABLET PO PRN (23:43)
[2016-12-08] VITALS: BP 131/72
[2016-12-08 04:00] VITALS: BP 147/90
[2016-12-08] MEDS: HYDROCODONE/ACETAMINOPHEN 5/325MG TABLET PO PRN ×2 (05:39→09:18)
[2016-12-08 06:30] LABS: BASOPHILS % 0.3 % (0.0-2.0); EOSINOPHILS % 0.9 % (0.0-5.0); HEMATOCRIT. 41.7 % (36.0-48.0); HEMOGLOBIN. 13.5 g/dL (12.0-16.0); LYMPHOCYTES % 28.5 % (20.0-50.0); MEAN CORPUSCULAR HEMOGLOBIN 28.8 pg (28.0-32.0); MEAN CORPUSCULAR VOLUME 88.9 fL (81.0-99.0); MEAN PLATELET VOLUME 7.8 fl (7.4-10.4); NEUTROPHILS % 62.3 % (40.0-76.0); PLATELET 260 x1000/uL (130-400); RED BLOOD CELL COUNT 4.69 mill/uL (4.2-5.4); RED CELL DISTRIBUTION WIDTH 15.8 % (11.6-14.6)
[2016-12-08 08:26] LABS: CARBON DIOXIDE 33 mEq/L (21-32); CHLORIDE 97 mEq/L (98-107)
[2016-12-08] MEDS ORDERED: FUROSEMIDE 40MG TABLET PO SCH (09:00)
[2016-12-08] MEDS: LOSARTAN POTASSIUM 25 MG TABLET PO SCH (09:06)
[2016-12-08] MEDS: DULOXETINE HCL 60MG DR CAPSULE PO SCH (09:06)
[2016-12-08] MEDS: CLOPIDOGREL 75MG TABLET PO SCH (09:06)
[2016-12-08] MEDS: PREDNISONE 20MG TABLET PO SCH (09:06)
[2016-12-08] MEDS: AMLODIPINE 5MG TABLET PO SCH (09:06)
[2016-12-08] MEDS: DOCUSATE SODIUM 100MG CAPSULE PO SCH (09:06)
[2016-12-08] MEDS: GABAPENTIN 400MG CAPSULE PO SCH (09:06)
[2016-12-08] MEDS: ASPIRIN 81MG EC TABLET PO SCH (09:07)
[2016-12-08] MEDS: LINAGLIPTIN 5MG TABLET PO SCH (09:07)
[2016-12-08] MEDS: FAMOTIDINE 20MG TABLET PO SCH (09:08)
[2016-12-08 09:18] VITALS: BP 147/90
[2016-12-08] MEDS: CARISOPRODOL 350 MG TABLET PO PRN (09:18)
== END 2016-12-08 12:35 | disposition left against medical advice (07) | DRG 291 ==
LOC: ER 19:00 → 5EST 12-03 04:11 → ENRESERV 12-03 06:45 → 8WST 12-07 16:03
PROVIDERS: ADMIT Family Medicine Adult Medicine; ATTEND Family Medicine Adult Medicine
PROC: 5A09357 Assistance with Respiratory Ventilation, Less than 24 Consecutive Hours, Continuous Positive Airway Pressure (ICD-10-PCS; principal; 2016-12-03)
DX: I11.0 Hypertensive heart disease with heart failure (principal); J96.21 Acute and chronic respiratory failure with hypoxia; I47.2 Ventricular tachycardia; E87.2 Acidosis; J18.9 Pneumonia, unspecified organism; J44.0 Chronic obstructive pulmonary disease with (acute) lower respiratory infection; E83.42 Hypomagnesemia; M87.9 Osteonecrosis, unspecified; J96.22 Acute and chronic respiratory failure with hypercapnia; J44.1 Chronic obstructive pulmonary disease with (acute) exacerbation; E87.1 Hypo-osmolality and hyponatremia; I50.43 Acute on chronic combined systolic (congestive) and diastolic (congestive) heart failure; E78.5 Hyperlipidemia, unspecified; F17.200 Nicotine dependence, unspecified, uncomplicated; G89.4 Chronic pain syndrome; I25.10 Atherosclerotic heart disease of native coronary artery without angina pectoris; I25.5 Ischemic cardiomyopathy; Z53.21 Procedure and treatment not carried out due to patient leaving prior to being seen by health care provider; R26.9 Unspecified abnormalities of gait and mobility; I49.3 Ventricular premature depolarization; Z91.19 Patient's noncompliance with other medical treatment and regimen; Z95.1 Presence of aortocoronary bypass graft; I25.2 Old myocardial infarction; Z79.82 Long term (current) use of aspirin; Z99.81 Dependence on supplemental oxygen; Z79.899 Other long term (current) drug therapy; Z90.49 Acquired absence of other specified parts of digestive tract; Z91.012 Allergy to eggs
CPT/HCPCS: 36415; 36600; 71010; 80048; 80053; 81001; 82375; 82805; 83605; 83690; 83735; 83880; 84484; 85025; 85379; 85610; 85730; 87040; 87086; 93005; 93970; 94640; 94660; 96365; 96366; 96367; 96375; 97116; 97162; 97166; 97530; 99291; G0482; J1650; J1940; J1956; J2920; J2930; J3475; J7060; J7120; J7512; J7611; J7620; J7626

== ENCOUNTER 2017-01-12 15:01 | Inpatient (IN) | payer MEDICARE, MEDICAID ==
[~2017-01-12] VITALS: Ht 154.9 cm; Wt 82.6 kg
[2017-01-12] MEDS ORDERED: METHYLPREDNISOLONE SOD SUCC 125 MG/2 ML VIAL IV STA (15:45)
[2017-01-12] MEDS ORDERED: ALBUTEROL (0.083%) 2.5MG/3ML NEB HHN STA (15:45)
[2017-01-12] MEDS ORDERED: MORPHINE SULFATE 4 MG/ML CPJ (NOT FOR IM USE) IV STA (15:45)
[2017-01-12] MEDS ORDERED: ONDANSETRON HCL 4MG/2ML VIAL IV STA (15:45)
[2017-01-12] MEDS ORDERED: IPRATROPIUM BROMIDE (0.02%) 0.5MG/2.5ML NEB HHN STA (15:45)
[2017-01-12] MEDS ORDERED: MORPHINE SULFATE 2 MG/ML CPJ (NOT FOR IM USE) IV ONE (16:26)
[2017-01-12 16:31] LABS: BG BASE EXCESS 2.6 mmol/L (-2.0-2.0); BG DEOXYHEMOGLOBIN 3.5 % (0.0-5.0); BG HCO3 ACT 29.9 mmol/L (22.0-26.0); BG OXYHEMOGLOBIN 83.5 % (94.0-97.0); BG PCO2 57.9 mmHg (35.0-45.0); BG PH 7.331 (7.350-7.450); BG PO2 82.8 mmHg (75.0-100.0); BG SAMPLE SITE RIGHT RADIAL; BG TOTAL HEMOGLOBIN 14.1 g/dL (12.0-18.0); BG VENT MODE NASAL CANNULA
[2017-01-12 17:30] LABS: BASOPHILS % 0.4 % (0.0-2.0); HEMATOCRIT. 42.6 % (36.0-48.0); HEMOGLOBIN. 13.6 g/dL (12.0-16.0); MEAN CORPUSCULAR HEMOGLOBIN 27.5 pg (28.0-32.0); MEAN CORPUSCULAR VOLUME 86.3 fL (81.0-99.0); MEAN PLATELET VOLUME 7.9 fl (7.4-10.4); MONOCYTES % 13.3 % (2.0-8.0); NEUTROPHILS % 64.3 % (40.0-76.0); PLATELET 251 x1000/uL (130-400); RED BLOOD CELL COUNT 4.94 mill/uL (4.2-5.4); RED CELL DISTRIBUTION WIDTH 17.1 % (11.6-14.6)
[2017-01-12 17:37] LABS: INR 1.2; PARTIAL THROMBOPLASTIN TIME 29.5 sec (23.4-31.0); PROTHROMBIN TIME 12.6 sec (9.4-11.6)
[2017-01-12 17:46] LABS: CLARITY URINE CLEAR (CLEAR); COLOR URINE YELLOW (YELLOW); GLUCOSE URINE NEGATIVE (NEGATIVE); KETONES URINE NEGATIVE (NEGATIVE); LEUKOCYTE ESTERASE URINE NEGATIVE (NEGATIVE); NITRITE URINE NEGATIVE (NEGATIVE); OCCULT BLOOD URINE NEGATIVE (NEGATIVE); PH URINE 6.5 (4.5-8.0); PROTEIN URINE NEGATIVE (NEGATIVE); SPECIFIC GRAVITY URINE 1.011 (1.005-1.030); UROBILINOGEN URINE 0.2 E.U./dL (0.2-1.0)
[2017-01-12 17:58] LABS: CARBON DIOXIDE 32 mEq/L (21-32); CHLORIDE 90 mEq/L (98-107)
[2017-01-12] MEDS ORDERED: ASPIRIN 325MG EC TABLET PO ONE (19:45)
[2017-01-12] MEDS ORDERED: FUROSEMIDE 100MG/10ML VIAL IVP NR (19:45)
[2017-01-12 22:00] VITALS: BP 127/65
[2017-01-12 22:15] VITALS: BP 134/77
[2017-01-12] MEDS ORDERED: ACETAMINOPHEN 325MG TABLET PO PRN (22:15)
[2017-01-12] MEDS ORDERED: HYDROCODONE/ACETAMINOPHEN 5/325MG TABLET PO PRN (22:15)
[2017-01-12] MEDS ORDERED: IPRATROPIUM/ALBUTEROL 0.5-3(2.5)MG/3ML NEB INH PRN (22:15)
[2017-01-12] MEDS ORDERED: ONDANSETRON HCL 4MG/2ML VIAL IV PRN (22:15)
[2017-01-12] MEDS ORDERED: DEXTROSE 50% WATER 50ML SYRINGE IV PRN (22:15)
[2017-01-13] VITALS (10 sets, daily range): BP systolic 99–131; BP diastolic 40–72
[2017-01-13] MEDS: IPRATROPIUM/ALBUTEROL 0.5-3(2.5)MG/3ML NEB INH SCH ×3 (02:32→20:40)
[2017-01-13] MEDS: LEVOFLOXACIN 500MG PREMIX 100 ML IV SCH (03:09)
[2017-01-13 04:31] LABS: BG BASE EXCESS 7.7 mmol/L (-2.0-2.0); BG BILEVEL POS AIRWAY PRESSURE 14/5; BG CARBOXYHEMOGLOBIN 1.3 % (0.5-1.5); BG DEOXYHEMOGLOBIN 6.8 % (0.0-5.0); BG FRACTION INSPIRED OXYGEN 50; BG HCO3 ACT 35.4 mmol/L (22.0-26.0); BG METHEMOGLOBIN 0.5 % (0.0-1.5); BG OXYGEN SATURATION 93.1 % (92.0-98.5); BG OXYHEMOGLOBIN 91.4 % (94.0-97.0); BG PH 7.367 (7.350-7.450); BG PO2 70.7 mmHg (75.0-100.0); BG SAMPLE SITE RIGHT BRACHIAL; BG TOTAL HEMOGLOBIN 14.5 g/dL (12.0-18.0); BG VENT MODE MASK - BIPAP; BG VENT RATE 16 set
[2017-01-13] MEDS: BLOOD SUGAR DIAGNOSTIC STRIP TEST SCH ×4 (06:16→21:00)
[2017-01-13] MEDS: OMEPRAZOLE 20MG CAPSULE EXTENDED RELEASE PO SCH (06:52)
[2017-01-13 06:56] LABS: HEMATOCRIT. 42.7 % (36.0-48.0); HEMOGLOBIN. 13.5 g/dL (12.0-16.0); MEAN CORPUSCULAR HEMOGLOBIN 27.1 pg (28.0-32.0); MEAN CORPUSCULAR VOLUME 85.8 fL (81.0-99.0); MEAN PLATELET VOLUME 7.8 fl (7.4-10.4); PLATELET 257 x1000/uL (130-400); RED BLOOD CELL COUNT 4.98 mill/uL (4.2-5.4); RED CELL DISTRIBUTION WIDTH 17.3 % (11.6-14.6)
[2017-01-13] MEDS: INSULIN LISPRO 100 UNITS/ML SUBCUT SCH ×4 (07:20→21:00)
[2017-01-13 08:00] LABS: CARBON DIOXIDE 36 mEq/L (21-32); CHLORIDE 90 mEq/L (98-107)
[2017-01-13] MEDS: HYDROCODONE/ACETAMINOPHEN 10/325MG TABLET PO PRN ×2 (08:05→18:08)
[2017-01-13 08:06] LABS: TROPONIN I 0.07 ng/mL (0.00-0.04)
[2017-01-13] MEDS ORDERED: HYDR-519 PO (09:58)
[2017-01-13] MEDS ORDERED: OMEPRAZOLE 20MG CAPSULE EXTENDED RELEASE PO SCH (10:00)
[2017-01-13] MEDS ORDERED: DIPHENOXYLATE/ATROPINE 2.5/0.025MG TABLET PO PRN (10:00)
[2017-01-13] MEDS ORDERED: MEDICATION NOT ON FORMULARY EA (Fluticasone/Salmeterol (Advair 250-50 Diskus) 1 PUFF) IH SCH (10:00)
[2017-01-13] MEDS ORDERED: LOSARTAN POTASSIUM 25 MG TABLET PO SCH (10:00)
[2017-01-13] MEDS ORDERED: MIRABEGRON 25 MG PO SCH (10:00)
[2017-01-13] MEDS: LOSARTAN POTASSIUM 25 MG TABLET PO SCH ×2 (10:00→14:19)
[2017-01-13] MEDS ORDERED: HYDROCODONE/ACETAMINOPHEN 10/325MG TABLET PO PRN (10:00)
[2017-01-13] MEDS ORDERED: ALBUTEROL 6.7GM HFA INHALER INH SCH (10:00)
[2017-01-13] MEDS: FUROSEMIDE 40MG/4ML VIAL IVP SCH ×4 (10:00→20:13)
[2017-01-13] MEDS ORDERED: ACLIDINIUM BROMIDE 400 MCG IH SCH (10:00)
[2017-01-13] MEDS: CARVEDILOL 3.125 MG TABLET PO SCH ×3 (10:15→21:00)
[2017-01-13 13:01] LABS: BG BASE EXCESS 7.5 mmol/L (-2.0-2.0); BG DEOXYHEMOGLOBIN 10.3 % (0.0-5.0); BG FRACTION INSPIRED OXYGEN 50; BG HCO3 ACT 33.4 mmol/L (22.0-26.0); BG METHEMOGLOBIN 0.4 % (0.0-1.5); BG OXYGEN SATURATION 89.6 % (92.0-98.5); BG OXYHEMOGLOBIN 88.3 % (94.0-97.0); BG PCO2 52.2 mmHg (35.0-45.0); BG PH 7.424 (7.350-7.450); BG PO2 58.1 mmHg (75.0-100.0); BG SAMPLE SITE RIGHT BRACHIAL; BG TOTAL HEMOGLOBIN 13.2 g/dL (12.0-18.0); BG VENT MODE MASK - VENTI
[2017-01-13] MEDS ORDERED: MAGNESIUM 2 G PREMIX 50 ML IV NR (14:00)
[2017-01-13] MEDS: POTASSIUM CHLORIDE 20MEQ TABLET SR PO SCH (14:19)
[2017-01-13] MEDS: EZETIMIBE 10MG TABLET PO SCH (14:19)
[2017-01-13] MEDS: CARISOPRODOL 350 MG TABLET PO SCH ×2 (14:20→18:03)
[2017-01-13] MEDS: DULOXETINE HCL 60MG DR CAPSULE PO SCH ×2 (14:20→18:03)
[2017-01-13] MEDS: METHYLPREDNISOLONE SOD SUCC 40 MG/ML VIAL IV SCH ×2 (14:41→20:27)
[2017-01-13] MEDS: LINAGLIPTIN 5MG TABLET PO SCH (15:52)
[2017-01-13] MEDS: GABAPENTIN 400MG CAPSULE PO SCH ×2 (15:52→18:03)
[2017-01-13] MEDS: ASPIRIN 325MG TABLET PO SCH (15:53)
[2017-01-13 16:33] LABS: *AMPHETAMINES SCREEN URINE NEGATIVE (NEGATIVE); *BARBITURATES SCREEN URINE NEGATIVE (NEGATIVE); *BENZODIAZEPINES SCREEN URINE NEGATIVE (NEGATIVE); *COCAINE SCREEN URINE NEGATIVE (NEGATIVE); CANNABINOID URINE SCREEN NEGATIVE (NEGATIVE); METHADONE URINE SCREEN NEGATIVE (NEGATIVE); OPIATES URINE SCREEN PRESUMTIVE POSITIVE (NEGATIVE); PHENCYCLIDINE URINE SCREEN NEGATIVE (NEGATIVE)
[2017-01-13] MEDS ORDERED: MEDICATION NOT ON FORMULARY EA (Simvastatin 40 MG) PO SCH (17:00)
[2017-01-13] MEDS ORDERED: ZOLPIDEM TARTRATE 5MG TABLET PO PRN (19:00)
[2017-01-13 19:24] LABS: PLATELET ESTIMATE NORMAL
[2017-01-13] MEDS: BUDESONIDE 0.5MG/2ML NEB HHN SCH (20:40)
[2017-01-13] MEDS: TRAZODONE HCL 100MG TABLET PO SCH (21:54)
[2017-01-13] MEDS: ATORVASTATIN CALCIUM 40MG TABLET PO SCH (21:54)
[2017-01-14] VITALS (11 sets, daily range): BP systolic 92–120; BP diastolic 51–73
[2017-01-14] MEDS: LEVOFLOXACIN 500MG PREMIX 100 ML IV SCH ×2 (00:17→22:56)
[2017-01-14] MEDS: IPRATROPIUM/ALBUTEROL 0.5-3(2.5)MG/3ML NEB INH SCH ×4 (02:13→20:40)
[2017-01-14] MEDS: METHYLPREDNISOLONE SOD SUCC 40 MG/ML VIAL IV SCH ×3 (04:17→21:02)
[2017-01-14] MEDS: BLOOD SUGAR DIAGNOSTIC STRIP TEST SCH ×4 (06:04→20:56)
[2017-01-14 06:47] LABS: BASOPHILS % 0.2 % (0.0-2.0); HEMATOCRIT. 38.8 % (36.0-48.0); HEMOGLOBIN. 12.4 g/dL (12.0-16.0); LYMPHOCYTES % 10.2 % (20.0-50.0); MEAN CORPUSCULAR HEMOGLOBIN 26.9 pg (28.0-32.0); MEAN CORPUSCULAR VOLUME 84.5 fL (81.0-99.0); MEAN PLATELET VOLUME 7.3 fl (7.4-10.4); MONOCYTES % 6.6 % (2.0-8.0); PLATELET 202 x1000/uL (130-400); RED CELL DISTRIBUTION WIDTH 17.2 % (11.6-14.6)
[2017-01-14] MEDS: INSULIN LISPRO 100 UNITS/ML SUBCUT SCH ×4 (07:20→21:03)
[2017-01-14 07:57] LABS: CARBON DIOXIDE 36 mEq/L (21-32); CHLORIDE 90 mEq/L (98-107)
[2017-01-14] MEDS: BUDESONIDE 0.5MG/2ML NEB HHN SCH ×2 (07:57→20:40)
[2017-01-14] MEDS: LOSARTAN POTASSIUM 25 MG TABLET PO SCH (08:06)
[2017-01-14] MEDS: POTASSIUM CHLORIDE 20MEQ TABLET SR PO SCH (08:06)
[2017-01-14] MEDS: LINAGLIPTIN 5MG TABLET PO SCH (08:07)
[2017-01-14] MEDS: CARVEDILOL 3.125 MG TABLET PO SCH ×2 (08:07→20:41)
[2017-01-14] MEDS: CARISOPRODOL 350 MG TABLET PO SCH ×2 (08:07→18:03)
[2017-01-14] MEDS: HYDROCODONE/ACETAMINOPHEN 10/325MG TABLET PO PRN ×2 (08:07→22:57)
[2017-01-14] MEDS: EZETIMIBE 10MG TABLET PO SCH (08:07)
[2017-01-14] MEDS: DOCUSATE SODIUM 100MG CAPSULE PO PRN (08:08)
[2017-01-14] MEDS: FUROSEMIDE 40MG/4ML VIAL IVP SCH ×2 (08:08→18:03)
[2017-01-14] MEDS: OMEPRAZOLE 20MG CAPSULE EXTENDED RELEASE PO SCH (08:08)
[2017-01-14] MEDS: ASPIRIN 325MG TABLET PO SCH (08:08)
[2017-01-14] MEDS: DULOXETINE HCL 60MG DR CAPSULE PO SCH ×2 (08:08→18:03)
[2017-01-14] MEDS: GABAPENTIN 400MG CAPSULE PO SCH ×2 (08:08→18:03)
[2017-01-14] MEDS ORDERED: FUROSEMIDE 40MG/4ML VIAL IV SCH (09:00)
[2017-01-14] MEDS ORDERED: LIDOCAINE HCL/PF 1% 2ML VIAL ONE (11:28)
[2017-01-14 11:46] LABS: BG BASE EXCESS 10.5 mmol/L (-2.0-2.0); BG CARBOXYHEMOGLOBIN 0.8 % (0.5-1.5); BG DEOXYHEMOGLOBIN 8.1 % (0.0-5.0); BG HCO3 ACT 36.2 mmol/L (22.0-26.0); BG METHEMOGLOBIN 0.1 % (0.0-1.5); BG OXYGEN SATURATION 91.8 % (92.0-98.5); BG PCO2 52.6 mmHg (35.0-45.0); BG PH 7.455 (7.350-7.450); BG PO2 62.8 mmHg (75.0-100.0); BG SAMPLE SITE RIGHT RADIAL; BG TOTAL HEMOGLOBIN 13.1 g/dL (12.0-18.0); BG VENT MODE NASAL CANNULA
[2017-01-14] MEDS: TRAZODONE HCL 100MG TABLET PO SCH (21:03)
[2017-01-14] MEDS: ATORVASTATIN CALCIUM 40MG TABLET PO SCH (21:03)
[2017-01-15] VITALS (12 sets, daily range): BP systolic 101–143; BP diastolic 57–97
[2017-01-15] MEDS: IPRATROPIUM/ALBUTEROL 0.5-3(2.5)MG/3ML NEB INH SCH ×4 (02:35→20:48)
[2017-01-15] MEDS: METHYLPREDNISOLONE SOD SUCC 40 MG/ML VIAL IV SCH ×2 (04:30→11:13)
[2017-01-15] MEDS: HYDROCODONE/ACETAMINOPHEN 10/325MG TABLET PO PRN ×4 (05:00→23:10)
[2017-01-15 06:35] LABS: BASOPHILS % 0.1 % (0.0-2.0); HEMATOCRIT. 40.1 % (36.0-48.0); HEMOGLOBIN. 12.6 g/dL (12.0-16.0); LYMPHOCYTES % 13.2 % (20.0-50.0); MEAN CORPUSCULAR HEMOGLOBIN 26.7 pg (28.0-32.0); MEAN CORPUSCULAR VOLUME 84.8 fL (81.0-99.0); MEAN PLATELET VOLUME 7.5 fl (7.4-10.4); MONOCYTES % 6.5 % (2.0-8.0); NEUTROPHILS % 80.2 % (40.0-76.0); PLATELET 219 x1000/uL (130-400); RED BLOOD CELL COUNT 4.73 mill/uL (4.2-5.4); RED CELL DISTRIBUTION WIDTH 17.7 % (11.6-14.6)
[2017-01-15] MEDS: BLOOD SUGAR DIAGNOSTIC STRIP TEST SCH ×4 (06:50→21:26)
[2017-01-15] MEDS: INSULIN LISPRO 100 UNITS/ML SUBCUT SCH ×4 (07:20→21:34)
[2017-01-15 07:46] LABS: CARBON DIOXIDE 35 mEq/L (21-32); CHLORIDE 88 mEq/L (98-107)
[2017-01-15] MEDS: LOSARTAN POTASSIUM 25 MG TABLET PO SCH (08:07)
[2017-01-15] MEDS: FAMOTIDINE 20MG TABLET PO SCH ×2 (08:07→21:34)
[2017-01-15] MEDS: EZETIMIBE 10MG TABLET PO SCH (08:07)
[2017-01-15] MEDS: LINAGLIPTIN 5MG TABLET PO SCH (08:07)
[2017-01-15] MEDS: ASPIRIN 325MG TABLET PO SCH (08:08)
[2017-01-15] MEDS: DULOXETINE HCL 60MG DR CAPSULE PO SCH ×2 (08:08→16:29)
[2017-01-15] MEDS: POTASSIUM CHLORIDE 20MEQ TABLET SR PO SCH (08:08)
[2017-01-15] MEDS: CARVEDILOL 3.125 MG TABLET PO SCH ×2 (08:09→21:00)
[2017-01-15] MEDS: CARISOPRODOL 350 MG TABLET PO SCH ×2 (08:09→16:29)
[2017-01-15] MEDS: GABAPENTIN 400MG CAPSULE PO SCH ×2 (08:09→16:29)
[2017-01-15] MEDS: FUROSEMIDE 40MG/4ML VIAL IVP SCH ×2 (08:10→16:30)
[2017-01-15] MEDS: BUDESONIDE 0.5MG/2ML NEB HHN SCH ×2 (08:43→20:48)
[2017-01-15] MEDS: LEVOFLOXACIN 500MG TABLET PO SCH (11:05)
[2017-01-15] MEDS ORDERED: BISACODYL 5MG TABLET PO PRN (15:00)
[2017-01-15] MEDS: DOCUSATE SODIUM 250MG CAPSULE PO SCH (15:51)
[2017-01-15] MEDS: ATORVASTATIN CALCIUM 40MG TABLET PO SCH (21:34)
[2017-01-15] MEDS: TRAZODONE HCL 100MG TABLET PO SCH (21:34)
[2017-01-16] VITALS (12 sets, daily range): BP systolic 93–126; BP diastolic 57–78
[2017-01-16] MEDS: IPRATROPIUM/ALBUTEROL 0.5-3(2.5)MG/3ML NEB INH SCH ×4 (01:45→20:56)
[2017-01-16] MEDS: HYDROCODONE/ACETAMINOPHEN 10/325MG TABLET PO PRN ×3 (05:30→17:12)
[2017-01-16 06:19] LABS: BASOPHILS % 0.1 % (0.0-2.0); EOSINOPHILS % 0.1 % (0.0-5.0); HEMATOCRIT. 41.2 % (36.0-48.0); HEMOGLOBIN. 13.1 g/dL (12.0-16.0); LYMPHOCYTES % 22.9 % (20.0-50.0); MEAN CORPUSCULAR HEMOGLOBIN 26.6 pg (28.0-32.0); MEAN CORPUSCULAR VOLUME 83.9 fL (81.0-99.0); MEAN PLATELET VOLUME 7.2 fl (7.4-10.4); MONOCYTES % 10.6 % (2.0-8.0); NEUTROPHILS % 66.3 % (40.0-76.0); PLATELET 205 x1000/uL (130-400); RED BLOOD CELL COUNT 4.91 mill/uL (4.2-5.4); RED CELL DISTRIBUTION WIDTH 18.1 % (11.6-14.6)
[2017-01-16 06:48] LABS: CARBON DIOXIDE 39 mEq/L (21-32); CHLORIDE 87 mEq/L (98-107)
[2017-01-16] MEDS: BLOOD SUGAR DIAGNOSTIC STRIP TEST SCH ×4 (07:16→21:00)
[2017-01-16] MEDS: INSULIN LISPRO 100 UNITS/ML SUBCUT SCH ×4 (07:16→21:00)
[2017-01-16] MEDS: ASPIRIN 325MG TABLET PO SCH (08:23)
[2017-01-16] MEDS: LOSARTAN POTASSIUM 25 MG TABLET PO SCH (08:24)
[2017-01-16] MEDS: FAMOTIDINE 20MG TABLET PO SCH ×2 (08:24→21:15)
[2017-01-16] MEDS: DOCUSATE SODIUM 100MG CAPSULE PO PRN (08:25)
[2017-01-16] MEDS: CARISOPRODOL 350 MG TABLET PO SCH ×2 (08:25→17:10)
[2017-01-16] MEDS: GABAPENTIN 400MG CAPSULE PO SCH ×2 (08:25→17:15)
[2017-01-16] MEDS: POTASSIUM CHLORIDE 20MEQ TABLET SR PO SCH (08:29)
[2017-01-16] MEDS: CARVEDILOL 3.125 MG TABLET PO SCH ×2 (08:29→21:00)
[2017-01-16] MEDS: LINAGLIPTIN 5MG TABLET PO SCH (08:29)
[2017-01-16] MEDS: DULOXETINE HCL 60MG DR CAPSULE PO SCH ×2 (08:30→17:11)
[2017-01-16] MEDS: EZETIMIBE 10MG TABLET PO SCH (08:30)
[2017-01-16] MEDS: FUROSEMIDE 40MG/4ML VIAL IVP SCH ×2 (08:31→17:10)
[2017-01-16] MEDS: DOCUSATE SODIUM 250MG CAPSULE PO SCH ×2 (08:33→17:11)
[2017-01-16] MEDS: BUDESONIDE 0.5MG/2ML NEB HHN SCH ×2 (08:56→20:56)
[2017-01-16] MEDS ORDERED: METHYLPREDNISOLONE SOD SUCC 40 MG/ML VIAL IV SCH (09:00)
[2017-01-16] MEDS ORDERED: MAGNESIUM CITRATE 300ML SOLUTION PO ONE (09:15)
[2017-01-16] MEDS: LEVOFLOXACIN 500MG TABLET PO SCH (10:36)
[2017-01-16] MEDS ORDERED: MAGNESIUM CITRATE 300ML SOLUTION PO NR (11:30)
[2017-01-16] MEDS ORDERED: MAGNESIUM 2 G PREMIX 50 ML IV NR (11:30)
[2017-01-16] MEDS ORDERED: BISACODYL 10MG SUPP PR NR (16:30)
[2017-01-16] MEDS: LACTULOSE 20G/30ML UDC PO SCH ×2 (17:10→21:14)
[2017-01-16] MEDS: POLYETHYLENE GLYCOL 3350 (17GM) 1 DOSE PACK PO SCH (21:14)
[2017-01-16] MEDS: ATORVASTATIN CALCIUM 40MG TABLET PO SCH (21:15)
[2017-01-16] MEDS: TRAZODONE HCL 100MG TABLET PO SCH (21:15)
[2017-01-17] VITALS (14 sets, daily range): BP systolic 87–116; BP diastolic 34–67
[2017-01-17] MEDS: LACTULOSE 20G/30ML UDC PO SCH (00:16)
[2017-01-17] MEDS: IPRATROPIUM/ALBUTEROL 0.5-3(2.5)MG/3ML NEB INH SCH ×4 (03:25→21:19)
[2017-01-17] MEDS: HYDROCODONE/ACETAMINOPHEN 10/325MG TABLET PO PRN ×2 (05:58→17:41)
[2017-01-17] MEDS: BLOOD SUGAR DIAGNOSTIC STRIP TEST SCH ×4 (06:50→21:00)
[2017-01-17 07:03] LABS: BASOPHILS % 0.3 % (0.0-2.0); EOSINOPHILS % 0.6 % (0.0-5.0); HEMATOCRIT. 41.1 % (36.0-48.0); HEMOGLOBIN. 13.2 g/dL (12.0-16.0); LYMPHOCYTES % 24.6 % (20.0-50.0); MEAN CORPUSCULAR HEMOGLOBIN 27.2 pg (28.0-32.0); MEAN CORPUSCULAR VOLUME 84.9 fL (81.0-99.0); MEAN PLATELET VOLUME 7.5 fl (7.4-10.4); MONOCYTES % 11.9 % (2.0-8.0); NEUTROPHILS % 62.6 % (40.0-76.0); PLATELET 214 x1000/uL (130-400); RED BLOOD CELL COUNT 4.84 mill/uL (4.2-5.4); RED CELL DISTRIBUTION WIDTH 17.6 % (11.6-14.6)
[2017-01-17] MEDS: INSULIN LISPRO 100 UNITS/ML SUBCUT SCH ×4 (07:20→21:28)
[2017-01-17 07:53] LABS: CARBON DIOXIDE 38 mEq/L (21-32); CHLORIDE 89 mEq/L (98-107)
[2017-01-17] MEDS: FUROSEMIDE 40MG/4ML VIAL IVP SCH ×3 (09:00→16:39)
[2017-01-17] MEDS: LOSARTAN POTASSIUM 25 MG TABLET PO SCH (09:00)
[2017-01-17] MEDS: DULOXETINE HCL 60MG DR CAPSULE PO SCH ×2 (09:27→16:40)
[2017-01-17] MEDS: DOCUSATE SODIUM 250MG CAPSULE PO SCH ×2 (09:27→16:40)
[2017-01-17] MEDS: FAMOTIDINE 20MG TABLET PO SCH ×2 (09:27→21:27)
[2017-01-17] MEDS: LINAGLIPTIN 5MG TABLET PO SCH (09:27)
[2017-01-17] MEDS: PREDNISONE 20MG TABLET PO SCH (09:28)
[2017-01-17] MEDS: EZETIMIBE 10MG TABLET PO SCH (09:28)
[2017-01-17] MEDS: POTASSIUM CHLORIDE 20MEQ TABLET SR PO SCH (09:28)
[2017-01-17] MEDS: CARISOPRODOL 350 MG TABLET PO SCH ×2 (09:28→16:40)
[2017-01-17] MEDS ORDERED: IPRATROPIUM/ALBUTEROL 0.5-3(2.5)MG/3ML NEB ONE (10:50)
[2017-01-17] MEDS: BUDESONIDE 0.5MG/2ML NEB HHN SCH ×2 (10:57→21:19)
[2017-01-17] MEDS: CARVEDILOL 3.125 MG TABLET PO SCH ×2 (11:01→21:00)
[2017-01-17] MEDS: GABAPENTIN 400MG CAPSULE PO SCH ×2 (11:05→16:40)
[2017-01-17] MEDS: CLOPIDOGREL 75MG TABLET PO SCH (11:05)
[2017-01-17] MEDS: LEVOFLOXACIN 500MG TABLET PO SCH (11:05)
[2017-01-17] MEDS: ASPIRIN 325MG TABLET PO SCH (11:05)
[2017-01-17] MEDS: POLYETHYLENE GLYCOL 3350 (17GM) 1 DOSE PACK PO SCH (21:27)
[2017-01-17] MEDS: ATORVASTATIN CALCIUM 40MG TABLET PO SCH (21:27)
[2017-01-17] MEDS: TRAZODONE HCL 100MG TABLET PO SCH (21:28)
[2017-01-18] VITALS (13 sets, daily range): BP systolic 102–130; BP diastolic 55–75
[2017-01-18] MEDS: IPRATROPIUM/ALBUTEROL 0.5-3(2.5)MG/3ML NEB INH SCH ×4 (02:57→21:12)
[2017-01-18] MEDS: INSULIN LISPRO 100 UNITS/ML SUBCUT SCH ×4 (06:57→21:32)
[2017-01-18] MEDS: BLOOD SUGAR DIAGNOSTIC STRIP TEST SCH ×4 (06:57→21:09)
[2017-01-18 07:01] LABS: BASOPHILS % 0.1 % (0.0-2.0); EOSINOPHILS % 1.8 % (0.0-5.0); HEMATOCRIT. 41.6 % (36.0-48.0); HEMOGLOBIN. 13.1 g/dL (12.0-16.0); LYMPHOCYTES % 30.5 % (20.0-50.0); MEAN CORPUSCULAR HEMOGLOBIN 26.5 pg (28.0-32.0); MEAN CORPUSCULAR VOLUME 83.9 fL (81.0-99.0); MEAN PLATELET VOLUME 7.3 fl (7.4-10.4); MONOCYTES % 10.1 % (2.0-8.0); NEUTROPHILS % 57.5 % (40.0-76.0); PLATELET 223 x1000/uL (130-400); RED BLOOD CELL COUNT 4.95 mill/uL (4.2-5.4); RED CELL DISTRIBUTION WIDTH 18.4 % (11.6-14.6)
[2017-01-18] MEDS: BUDESONIDE 0.5MG/2ML NEB HHN SCH ×2 (07:10→21:12)
[2017-01-18 07:28] LABS: CARBON DIOXIDE 36 mEq/L (21-32); CHLORIDE 92 mEq/L (98-107)
[2017-01-18] MEDS: FUROSEMIDE 40MG/4ML VIAL IVP SCH (09:00)
[2017-01-18] MEDS: LOSARTAN POTASSIUM 25 MG TABLET PO SCH (09:00)
[2017-01-18] MEDS: HYDROCODONE/ACETAMINOPHEN 10/325MG TABLET PO PRN ×3 (09:02→21:23)
[2017-01-18] MEDS: PREDNISONE 20MG TABLET PO SCH (09:27)
[2017-01-18] MEDS: ASPIRIN 81MG TABLET PO SCH (09:27)
[2017-01-18] MEDS: DOCUSATE SODIUM 250MG CAPSULE PO SCH ×2 (09:27→17:58)
[2017-01-18] MEDS: CLOPIDOGREL 75MG TABLET PO SCH (09:27)
[2017-01-18] MEDS: CARISOPRODOL 350 MG TABLET PO SCH ×2 (09:28→17:58)
[2017-01-18] MEDS: DULOXETINE HCL 60MG DR CAPSULE PO SCH ×2 (09:28→17:58)
[2017-01-18] MEDS: EZETIMIBE 10MG TABLET PO SCH (09:28)
[2017-01-18] MEDS: POTASSIUM CHLORIDE 20MEQ TABLET SR PO SCH (09:29)
[2017-01-18] MEDS: FAMOTIDINE 20MG TABLET PO SCH ×2 (09:29→21:20)
[2017-01-18] MEDS: CARVEDILOL 3.125 MG TABLET PO SCH ×2 (09:29→21:19)
[2017-01-18] MEDS: LINAGLIPTIN 5MG TABLET PO SCH (09:39)
[2017-01-18] MEDS: GABAPENTIN 400MG CAPSULE PO SCH ×2 (09:39→17:58)
[2017-01-18] MEDS ORDERED: FUROSEMIDE 20MG TABLET PO SCH (11:00)
[2017-01-18] MEDS: LEVOFLOXACIN 500MG TABLET PO SCH (12:47)
[2017-01-18] MEDS: ATORVASTATIN CALCIUM 40MG TABLET PO SCH (21:20)
[2017-01-18] MEDS: TRAZODONE HCL 100MG TABLET PO SCH (21:20)
[2017-01-18] MEDS: POLYETHYLENE GLYCOL 3350 (17GM) 1 DOSE PACK PO SCH (21:23)
[2017-01-19] VITALS: BP 130/75
[2017-01-19 00:24] VITALS: BP 115/74
[2017-01-19] MEDS ORDERED: ZOLPIDEM TARTRATE 5MG TABLET PO PRN (01:15)
[2017-01-19] MEDS: IPRATROPIUM/ALBUTEROL 0.5-3(2.5)MG/3ML NEB INH SCH ×2 (01:17→08:30)
[2017-01-19] MEDS: HYDROCODONE/ACETAMINOPHEN 10/325MG TABLET PO PRN ×2 (03:35→09:36)
[2017-01-19 04:00] VITALS: BP 144/81
[2017-01-19] MEDS: INSULIN LISPRO 100 UNITS/ML SUBCUT SCH (06:24)
[2017-01-19] MEDS: BLOOD SUGAR DIAGNOSTIC STRIP TEST SCH (06:24)
[2017-01-19 06:56] LABS: BASOPHILS % 0.2 % (0.0-2.0); EOSINOPHILS % 3.2 % (0.0-5.0); HEMATOCRIT. 40.1 % (36.0-48.0); HEMOGLOBIN. 12.6 g/dL (12.0-16.0); LYMPHOCYTES % 28.4 % (20.0-50.0); MEAN CORPUSCULAR HEMOGLOBIN 26.5 pg (28.0-32.0); MEAN CORPUSCULAR VOLUME 84.3 fL (81.0-99.0); MEAN PLATELET VOLUME 7.6 fl (7.4-10.4); MONOCYTES % 9.2 % (2.0-8.0); PLATELET 258 x1000/uL (130-400); RED BLOOD CELL COUNT 4.76 mill/uL (4.2-5.4); RED CELL DISTRIBUTION WIDTH 17.9 % (11.6-14.6)
[2017-01-19 07:26] LABS: CARBON DIOXIDE 33 mEq/L (21-32); CHLORIDE 92 mEq/L (98-107)
[2017-01-19 08:00] VITALS: BP 99/64
[2017-01-19] MEDS: GABAPENTIN 400MG CAPSULE PO SCH (09:26)
[2017-01-19] MEDS: ASPIRIN 81MG TABLET PO SCH (09:26)
[2017-01-19] MEDS: EZETIMIBE 10MG TABLET PO SCH (09:27)
[2017-01-19] MEDS: FAMOTIDINE 20MG TABLET PO SCH (09:27)
[2017-01-19] MEDS: LINAGLIPTIN 5MG TABLET PO SCH (09:27)
[2017-01-19] MEDS: CLOPIDOGREL 75MG TABLET PO SCH (09:27)
[2017-01-19] MEDS: DULOXETINE HCL 60MG DR CAPSULE PO SCH (09:27)
[2017-01-19] MEDS: LOSARTAN POTASSIUM 25 MG TABLET PO SCH (09:27)
[2017-01-19] MEDS: CARVEDILOL 3.125 MG TABLET PO SCH (09:27)
[2017-01-19] MEDS: DOCUSATE SODIUM 250MG CAPSULE PO SCH (09:27)
[2017-01-19] MEDS: CARISOPRODOL 350 MG TABLET PO SCH (09:27)
[2017-01-19] MEDS: PREDNISONE 20MG TABLET PO SCH (09:35)
[2017-01-19] MEDS: POTASSIUM CHLORIDE 20MEQ TABLET SR PO SCH (09:38)
[2017-01-19] MEDS ORDERED: LACTULOSE 20G/30ML UDC PO NR (11:00)
[2017-01-19 11:41] VITALS: BP 124/66
[2017-01-19] MEDS ORDERED: FUROSEMIDE 20MG TABLET PO SCH (13:00)
[2017-01-20] MEDS ORDERED: PREDNISONE 10MG TABLET PO SCH (09:00)
== END 2017-01-19 12:05 | disposition home or self-care (01) | DRG 291 ==
LOC: ER 15:32 → ENRESERV 16:55 → CANRESERV 16:55 → 3WST 20:02 → EDBEDREQ 20:11 → EDBEDREQSVC 20:11 → ENRESERV 20:48 → 3WST 01-13 05:23 → 5WST 01-19 00:34
PROVIDERS: ADMIT Family Medicine Adult Medicine; ATTEND Family Medicine Adult Medicine
PROC: 5A09357 Assistance with Respiratory Ventilation, Less than 24 Consecutive Hours, Continuous Positive Airway Pressure (ICD-10-PCS; principal; 2017-01-12)
PROC: 5A09357 Assistance with Respiratory Ventilation, Less than 24 Consecutive Hours, Continuous Positive Airway Pressure (ICD-10-PCS; 2017-01-13)
PROC: 5A09357 Assistance with Respiratory Ventilation, Less than 24 Consecutive Hours, Continuous Positive Airway Pressure (ICD-10-PCS; 2017-01-15)
PROC: 5A09357 Assistance with Respiratory Ventilation, Less than 24 Consecutive Hours, Continuous Positive Airway Pressure (ICD-10-PCS; 2017-01-16)
DX: I11.0 Hypertensive heart disease with heart failure (principal); J96.21 Acute and chronic respiratory failure with hypoxia; E11.40 Type 2 diabetes mellitus with diabetic neuropathy, unspecified; J44.1 Chronic obstructive pulmonary disease with (acute) exacerbation; E11.51 Type 2 diabetes mellitus with diabetic peripheral angiopathy without gangrene; E83.42 Hypomagnesemia; J45.901 Unspecified asthma with (acute) exacerbation; J96.22 Acute and chronic respiratory failure with hypercapnia; I47.1 Supraventricular tachycardia; E87.1 Hypo-osmolality and hyponatremia; I50.43 Acute on chronic combined systolic (congestive) and diastolic (congestive) heart failure; I25.10 Atherosclerotic heart disease of native coronary artery without angina pectoris; I25.5 Ischemic cardiomyopathy; E78.00 Pure hypercholesterolemia, unspecified; E78.5 Hyperlipidemia, unspecified; F17.200 Nicotine dependence, unspecified, uncomplicated; G89.4 Chronic pain syndrome; K21.9 Gastro-esophageal reflux disease without esophagitis; M48.061 Spinal stenosis, lumbar region without neurogenic claudication; Z91.19 Patient's noncompliance with other medical treatment and regimen; Z98.61 Coronary angioplasty status; Z95.1 Presence of aortocoronary bypass graft; Z99.81 Dependence on supplemental oxygen; Z91.012 Allergy to eggs; Z79.899 Other long term (current) drug therapy; Z79.82 Long term (current) use of aspirin; Z90.49 Acquired absence of other specified parts of digestive tract; I25.2 Old myocardial infarction; Z82.49 Family history of ischemic heart disease and other diseases of the circulatory system
CPT/HCPCS: 36415; 36600; 71010; 80048; 80053; 80305; 81003; 82375; 82805; 82962; 83735; 83880; 84443; 84484; 85025; 85610; 85730; 93005; 93306; 94640; 94660; 96374; 96375; 97116; 97162; 97166; 99291; J1815; J1940; J1956; J2270; J2405; J2920; J2930; J3475; J3490; J7040; J7050; J7512; J7611; J7620; J7626; A4315

== ENCOUNTER 2017-02-28 12:35 | Emergency (ER) | payer MEDICARE, MEDICAID ==
[~2017-02-28] VITALS: Ht 154.9 cm; Wt 73.0 kg
[~2017-02-28 12:35] MED LIST changes: +HYDR-519 PO
[2017-02-28 12:49] VITALS: BP 151/133
[2017-02-28 17:04] LABS: HEMATOCRIT. 43.9 % (36.0-48.0); HEMOGLOBIN. 13.4 g/dL (12.0-16.0); MEAN CORPUSCULAR HEMOGLOBIN 24.9 pg (28.0-32.0); MEAN CORPUSCULAR VOLUME 81.6 fL (81.0-99.0); PLATELET 190 x1000/uL (130-400); RED BLOOD CELL COUNT 5.38 mill/uL (4.2-5.4); RED CELL DISTRIBUTION WIDTH 20.1 % (11.6-14.6)
[2017-02-28 17:09] LABS: INR 1.3; PROTHROMBIN TIME 13.4 sec (9.4-11.6)
[2017-02-28 17:19] LABS: CARBON DIOXIDE 35 mEq/L (21-32); CHLORIDE 101 mEq/L (98-107)
[2017-02-28 17:20] LABS: TROPONIN I < 0.02 ng/mL (0.00-0.04)
[2017-02-28 18:01] LABS: PLATELET ESTIMATE NORMAL
== END 2017-02-28 19:04 | disposition left against medical advice (07) ==
LOC: ER 13:53
DX: R07.89 Other chest pain (principal); J44.9 Chronic obstructive pulmonary disease, unspecified; I10 Essential (primary) hypertension; I25.10 Atherosclerotic heart disease of native coronary artery without angina pectoris; Z95.1 Presence of aortocoronary bypass graft; Z79.82 Long term (current) use of aspirin
CPT/HCPCS: 36415; 71045; 80053; 83880; 84484; 85025; 85610; 93005; 99285